=== PATIENT | female | born 1995 | race Caucasian/White ===

== ENCOUNTER → 2018-05-17 | Outpatient (CLI) | payer MEDICAID ==
--- NOTE | 2018-05-20 13:41 | HM ---
HOLTER MONITOR REPORT Patient was monitored 24 hours. The baseline rhythm is a sinus mechanism with normal conduction. The average rate 94 beats per minute, minimum 63, maximum 132 beats per minute. Supraventricular ectopic activity was present in the form of rare single PACs. Ventricular ectopic activity was not present. Symptoms of dizziness, fast rate, anxiety, shortness of breath did not correlate with any dysrhythmia. CONCLUSION: 1. Sinus mechanism baseline rhythm. 2. Rare supraventricular ectopic activity. 3. No ventricular ectopic activity. 4. Symptoms did not correlate with any dysrhythmia. MMODL / IJN: [id number] /
== END | disposition home or self-care (01) ==
LOC: RADECHMAIN 12:52
PROVIDERS: ATTEND Physician Assistant
DX: I49.3 Ventricular premature depolarization (principal)
CPT/HCPCS: 93225; 93226

== ENCOUNTER → 2018-06-01 | Outpatient (CLI) | payer MEDICAID ==
--- NOTE | 2018-06-01 13:07 | US ---
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 HTN and increased heart ra te for 1 month. TECHNIQUE: Multiple sonographic images of the abdomen are obtained. FINDINGS: EXAM MEASUREMENTS: Liver Length: 12.4 cm Gallbladder Wall: 0.2 cm CBD: 0.4 cm Spleen: 8.0 cm Right Kidney: 9.5 x 4.3 x 4.4 cm Left Kidney: 10.4 x 5.0 x 4.3 cm Grounds Keeper notes:Technical limitations due to large amount of overlying bowel content Pancreas: Only a small portion of the pancreatic neck is seen. Remainder is suboptimally visualized due to shadowing from bowel gas. Liver: Limited intercostal views show no gross abnormality. Gallbladder: no evidence of stones Evidence for sonographic Carroll's sign: no CBD: limited evaluation Spleen: wnl Right Kidney: no evidence of hydronephrosis. Left Kidney: no evidence of hydronephrosis. Upper IVC: wnl Abd Aorta: wnl Scanned within adrenal area bilaterally, unable to visualize at this time IMPRESSION: 1. Some technical and patient limitations as above. 2. The adrenal glands could not be discretely visualized. Note that ultrasound has low utility for as sessment of the adrenal glands.
== END ==
LOC: RADUSWWP 10:15
PROVIDERS: ATTEND Family Medicine
DX: D35.00 Benign neoplasm of unspecified adrenal gland (principal)
CPT/HCPCS: 76700

== ENCOUNTER → 2018-06-06 | Outpatient (CLI) | payer MEDICAID ==
--- NOTE | 2018-06-07 10:25 | ECHOF ---
Referral Reason:I10 Hypertension MEASUREMENTS -------- HEIGHT: 154.9 cm WEIGHT: 95.3 kg BP: RVIDd: 2.4 cm (< 3.3) IVSd: 0.8 cm (0.6 - 1.1) LVIDd: 3.5 cm (3.9 - 5.3) LVPWd: 1.0 cm (0.6 - 1.1) IVSs: 1.2 cm LVIDs: 2.4 cm LVPWs: 1.2 cm LAESV Index (A-L): 22.83 ml/m Ao Diam: 2.9 cm (2.0 - 3.7) AV Cusp: 1.7 cm (1.5 - 2.6) LA Diam: 3.2 cm (2.7 - 3.8) EPSS: 0.3 cm MV E Tyson: 0.76 m/s MV DecT: 303 ms MV A Tyson: 0.71 m/s MV E/A Ratio: 1.07 RAP: 5.00 mmHg RVSP: 27.76 mmHg MV EF SLOPE: 103.46 mm/s (70 - 150) MV EXCURSION: 1.54 cm (> 18.000) FINDINGS -------- Sinus rhythm. This was a technically good study. The left ventricular size is normal. Left ventricular wall thickness is normal. Overall left vent ricular systolic function is normal with, an EF between 55 - 60 %. The right ventricle is normal in size and function. Normal LA size by volume 22+/-6 ml/m2. The right atrium is normal in size. The aortic valve is trileaflet, and appears structurally normal. No aortic stenosis or regurgitation. The mitral valve is normal. There is trace mitral regurgitation. Trace tricuspid regurgitation present. Right ventricular systolic pressure is normal at < 35 mmHg. There is no evidence of pulmonary hypertension. Trace/mild (physiologic) pulmonic regurgitation. The aortic root size is normal. Normal inferior vena cava with normal inspiratory collapse consistent with estimated right atrial pre ssure of 5 mmHg. There is no pericardial effusion. CONCLUSIONS -------- 1. Sinus rhythm. 2. This was a technically good study. 3. The left ventricular size is normal. 4. Left ventricular wall thickness is normal. 5. Overall left ventricular systolic function is normal with, an EF between 55 - 60 %. 6. Normal LA size by volume 22+/-6 ml/m2. 7. The aortic valve is trileaflet, and appears structurally normal. No aortic stenosis or regurgitati on. 8. There is trace mitral regurgitation. 9. Trace tricuspid regurgitation present. 10. Right ventricular systolic pressure is normal at < 35 mmHg. 11. There is no evidence of pulmonary hypertension. 12. Trace/mild (physiologic) pulmonic regurgitation. 13. The aortic root size is normal. 14. There is no pericardial effusion. PROCESS MAINTENANCE TECHNICIAN: Milton Roman RDCS
== END | disposition home or self-care (01) ==
LOC: RADECHMAIN 13:51
PROVIDERS: ATTEND Family Medicine
DX: I08.1 Rheumatic disorders of both mitral and tricuspid valves (principal); I10 Essential (primary) hypertension
CPT/HCPCS: 93306

== ENCOUNTER → 2018-06-30 | Outpatient (CLI) | payer MEDICAID ==
--- NOTE | 2018-06-30 11:31 | US ---
EXAMINATION TYPE: US thyroid st tissue head/neck DATE OF EXAM: 06/30/2018 COMPARISON: NONE CLINICAL HISTORY: E04.[address] exam enlarged thyroid GLAND SIZE: Right Lobe: 5.2 x 1.5 x 1.4 cm Overall Parenchyma: slightly heterogeneous Left Lobe: 4.8 x1.5 x 1.5 cm Overall Parenchyma: slightly heterogeneous Isthmus Thickness: 0.3 cm NODULES RIGHT: # of nodules measured on right: 1 1. 0.7 X 0.6 x 0.4 cm echogenic solid nodule at the mid pole with well-defined margins; . This nod ule is wider than tall and shows no intranodular vascularity. Prior size: no prior LEFT: # of nodules measured on left: 1 1. 0.3 X 0.2 x 0.5 cm echogenic mixed nodule at the medial pole with well-defined margins; . This nodule is wider than tall and shows no intranodular vascularity. Prior size: no prior ISTHMUS: # of nodules measured in the isthmus: 0 Bilateral neck scanned, no evidence of lymphadenopathy. Thyroid gland is normal in size and slightly heterogeneous in appearance with single subcentimeter no dules marked by technologist in both thyroid lobes. IMPRESSION: Normal-sized thyroid without suspicious greater than 1 cm solid or cystic nodule identified.
== END | disposition home or self-care (01) ==
LOC: RADUSWWP 10:11
PROVIDERS: ATTEND Otolaryngology
DX: E04.1 Nontoxic single thyroid nodule (principal)
CPT/HCPCS: 76536

== ENCOUNTER → 2018-07-12 | Outpatient (CLI) | payer MEDICAID ==
[2018-07-12 10:06] LABS: Anion Gap 9 mmol/L; Carbon Dioxide 26 mmol/L (22-30); Chloride 104 mmol/L (98-107); Glucose 91 mg/dL (74-99); Sodium 139 mmol/L (137-145)
[2018-07-12 11:17] LABS: T4, Free (Free Thyroxine) 0.89 ng/dL (0.78-2.19)
[2018-07-12 16:20] LABS: DHEA Sulfate 342.1 ug/dL (26.0-430.0)
[2018-07-12 16:28] LABS: Thyroid Peroxidase Antibodies 61.4 U/mL (0.0-60.0)
[2018-07-12 20:33] LABS: Hemoglobin A1C 5.3 % (4.0-6.0)
== END | disposition home or self-care (01) ==
LOC: RADXRMAIN 09:06
PROVIDERS: ATTEND Internal Medicine Endocrinology, Diabetes & Metabolism
DX: I10 Essential (primary) hypertension (principal); E24.8 Other Cushing's syndrome; E06.3 Autoimmune thyroiditis
CPT/HCPCS: 36415; 80051; 82024; 82533; 82565; 82627; 82947; 83001; 83002; 83036; 83498; 83525; 84403; 84439; 84443; 86376; 86800

== ENCOUNTER → 2018-09-08 | Outpatient (CLI) | payer MEDICAID ==
--- NOTE | 2018-09-09 10:42 | US ---
EXAMINATION TYPE: US pelvic complete DATE OF EXAM: 09/08/2018 COMPARISON: NONE CLINICAL HISTORY: N91.2 Amenorrhea, unspecified. Large body habitus, pt refused TV TECHNIQUE: Transabdominal (TA). Transabdominal sonographic images of the pelvis were acquired. Date of LMP: 05/20/2018 EXAM MEASUREMENTS: Uterus: 7.2 x 2.2 x 3.2 cm Endometrial Stripe: 0.3 cm Right Ovary: 3.1 x 2.8 x 2.7 cm Left Ovary: 2.1 x 1.5 x 2.0 cm 1. Uterus: Anteverted wnl 2. Endometrium: wnl 3. Right Ovary: small follicles, largest measures 1.6 x 1.7 x 1.5 cm 4. Left Ovary: small follicles, largest measures 0.5 x 0.7 x 0.8 cm 5. Bilateral Adnexa: wnl 6. Posterior cul-de-sac: wnl IMPRESSION: Although there are multiple small follicles there is suboptimally visualized given patien t body habitus and refusal for transvaginal imaging. Peripheral location that is typical in polycysti c ovarian syndrome cannot be demonstrated sonographically. No abnormal endometrial thickness.
== END | disposition home or self-care (01) ==
LOC: RADUSWWP 07:04
PROVIDERS: ATTEND Family Medicine
DX: N91.2 Amenorrhea, unspecified (principal)
CPT/HCPCS: 76856

== ENCOUNTER 2018-11-12 09:09 | Observation (INO) | payer MEDICAID ==
[2018-11-12] MEDS ORDERED: SODIUM CHLORIDE 0.9% 1,000 ML IV STA (09:31)
[2018-11-12] MEDS ORDERED: KETOROLAC 30 MG/ML 1 ML VIAL IVP STA (09:31)
--- NOTE | 2018-11-12 09:35 | ED ---
General Adult HPI <DmitryEfe - Last Filed: 11/12/18 12:38> - General Source: patient, RN notes reviewed Mode of arrival: ambulatory Limitations: no limitations <Finn Wong - Last Filed: 11/12/18 12:48> - General Chief complaint: Abdominal Pain Stated complaint: Abd pain Time Seen by Provider: 11/12/18 09:16 - History of Present Illness Initial comments: 23-year-old female presents for chief complaint of mild abdominal pain and nausea times one day. Patient states this started yesterday. She states it feels a sharp cramping pain in the middle of her abdomen. Patient denies any pelvic pain. Patient states she last had a normal bowel movement yesterday. She denies any dysuria. She denies any concern for STDs. Patient denies any chance of . Patient states she has had mild nausea but has denied vomiting. She has been eating and drinking at home. No fevers or chills. Patient has no other complaints at this time including shortness of breath, chest pain, vomiting, headache, or visual changes. (Finn Wong) - Related Data Home Medications Medication Instructions Recorded Confirmed Calcium Carbonate [Tums] 500 mg PO TID PRN 11/12/18 11/12/18 Docusate [Colace] 100 mg PO DAILY PRN 11/12/18 11/12/18 Norethindrone-E.estradiol-Iron 1 tab PO DAILY 11/12/18 11/12/18 [Loestrin Fe 1-20 Tablet] Allergies Allergy/AdvReac Type Severity Reaction Status Date / Time No Known Allergies Allergy Verified 11/12/18 12:43 Review of Systems ROS Other: All systems not noted in ROS Statement are negative. <Efe Andres - Last Filed: 11/12/18 12:38> ROS Other: All systems not noted in ROS Statement are negative. <Finn Wong - Last Filed: 11/12/18 12:48> ROS Statement: Those systems with pertinent positive or pertinent negative responses have been documented in the HPI. Past Medical History Past Medical History: No Reported History History of Any Multi-Drug Resistant Organisms: None Reported Past Surgical History: No Surgical Hx Reported Past Psychological History: No Psychological Hx Reported Smoking Status: Never smoker Past Alcohol Use History: Occasional Past Drug Use History: None Reported <Finn Wong Evelyne - Last Filed: 11/12/18 12:48> General Exam Limitations: no limitations General appearance: alert, in no apparent distress Head exam: Present: atraumatic, normocephalic, normal inspection Eye exam: Present: normal appearance, PERRL, EOMI. Absent: scleral icterus, conjunctival injection, periorbital swelling ENT exam: Present: normal exam, mucous membranes moist Neck exam: Present: normal inspection, full ROM. Absent: tenderness, meningismus, lymphadenopathy Respiratory exam: Present: normal lung sounds bilaterally. Absent: respiratory distress, wheezes, rales, rhonchi, stridor Cardiovascular Exam: Present: regular rate, normal rhythm, normal heart sounds. Absent: systolic murmur, diastolic murmur, rubs, gallop, clicks GI/Abdominal exam: Present: soft, tenderness (mild mid abdominal tenderness with very minimal LLQ and RLQ tenderness without rebound or guarding. no RUQ or LUQ tenderness or epigastric tenderness), normal bowel sounds. Absent: distended, guarding, rebound, rigid Neurological exam: Present: alert, oriented X3, CN II-XII intact Psychiatric exam: Present: normal affect, normal mood <MarvinFinn tejeda Evelyne - Last Filed: 11/12/18 12:48> Course <Efe Andres - Last Filed: 11/12/18 12:38> <Finn Wong Evelyne - Last Filed: 11/12/18 12:48> Vital Signs 11/12/18 11/12/18 11/12/18 09:11 10:41 12:33 Temperature 98.3 F 98.6 F 98.2 F Pulse Rate 104 H 96 116 H Respiratory 18 18 18 Rate Blood Pressure 150/81 131/91 126/81 O2 Sat by Pulse 100 99 99 Oximetry - Reevaluation(s) Reevaluation #1: 11/12/18 12:38 PA supervision: I proceeded [id number] evaluation patient did discuss the findings with the patient and her family. Patient does have abdominal pain. Umbilical in nature which started last night. Her last meal was last night. She does have some mild tenderness palpation of the periumbilical and right lower quadrant area no definitive McBurney point tenderness. She does demonstrate an elevated white blood cell count CAT scan does show evidence of acute appendicitis. I did discuss the case with Dr. Carson patient will be going to surgery. I do agree with the assessment and plan. I did review all labs and imaging. (Efe Andres) Medical Decision Making - Lab Data Result diagrams: 11/12/18 09:46 11/12/18 09:46 <Efe Andres - Last Filed: 11/12/18 12:38> - Lab Data Result diagrams: 11/12/18 09:46 11/12/18 09:46 <Finn Wong - Last Filed: 11/12/18 12:48> - Medical Decision Making 23-year-old female presents with right lower quadrant pain. White count of 14.6. HCG negative. Patient is acute appendicitis on CT. Patient started on Unasyn. Will be admitted to [facility] for surgical consult. Patient going to OR at this time. (iFnn Wnog) - Lab Data Lab Results 11/12/18 11/12/18 11/12/18 Range/Units 09:25 09:25 09:46 WBC (3.8-10.6) k/uL RBC (3.80-5.40) m/uL Hgb (11.4-16.0) gm/dL Hct (34.0-46.0) % MCV (80.0-100.0) fL MCH (25.0-35.0) pg MCHC (31.0-37.0) g/dL RDW (11.5-15.5) % Plt Count (150-450) k/uL Neutrophils % % Lymphocytes % % Monocytes % % Eosinophils % % Basophils % % Neutrophils # (1.3-7.7) k/uL Lymphocytes # (1.0-4.8) k/uL Monocytes # (0-1.0) k/uL Eosinophils # (0-0.7) k/uL Basophils # (0-0.2) k/uL Sodium 135 L (137-145) mmol/L Potassium 4.1 (3.5-5.1) mmol/L Chloride 100 (98-107) mmol/L Carbon Dioxide 23 (22-30) mmol/L Anion Gap 12 mmol/L BUN 12 (7-17) mg/dL Creatinine 0.59 (0.52-1.04) mg/dL Est GFR (CKD-EPI)AfAm >90 (>60 ml/min/1.73 sqM) Est GFR (CKD-EPI)NonAf >90 (>60 ml/min/1.73 sqM) Glucose 150 H (74-99) mg/dL Calcium 10.5 H (8.4-10.2) mg/dL Total Bilirubin 0.8 (0.2-1.3) mg/dL AST 30 (14-36) U/L ALT 38 (9-52) U/L Alkaline Phosphatase 76 (38-126) U/L Total Protein 8.2 (6.3-8.2) g/dL Albumin 4.9 (3.5-5.0) g/dL Amylase 44 (30-110) U/L Lipase 88 (23-300) U/L Urine Color Yellow Urine Appearance Clear (Clear) Urine pH 6.0 (5.0-8.0) Ur Specific [place] 1.017 (1.001-1.035) Urine Protein Negative (Negative) Urine Glucose (UA) Negative (Negative) Urine Ketones 1+ H (Negative) Urine Blood Negative (Negative) Urine Nitrite Negative (Negative) Urine Bilirubin Negative (Negative) Urine Urobilinogen <2.0 (<2.0) mg/dL Ur Leukocyte Esterase Negative (Negative) Urine HCG, Qual Not Detected (Not Detectd) 11/12/18 Range/Units 09:46 WBC 14.6 H (3.8-10.6) k/uL RBC 4.94 (3.80-5.40) m/uL Hgb 14.6 (11.4-16.0) gm/dL Hct 42.6 (34.0-46.0) % MCV 86.3 (80.0-100.0) fL MCH 29.5 (25.0-35.0) pg MCHC 34.1 (31.0-37.0) g/dL RDW 13.2 (11.5-15.5) % Plt Count 302 (150-450) k/uL Neutrophils % 86 % Lymphocytes % 9 % Monocytes % 4 % Eosinophils % 1 % Basophils % 0 % Neutrophils # 12.6 H (1.3-7.7) k/uL Lymphocytes # 1.3 (1.0-4.8) k/uL Monocytes # 0.5 (0-1.0) k/uL Eosinophils # 0.1 (0-0.7) k/uL Basophils # 0.1 (0-0.2) k/uL Sodium (137-145) mmol/L Potassium (3.5-5.1) mmol/L Chloride (98-107) mmol/L Carbon Dioxide (22-30) mmol/L Anion Gap mmol/L BUN (7-17) mg/dL Creatinine (0.52-1.04) mg/dL Est GFR (CKD-EPI)AfAm (>60 ml/min/1.73 sqM) Est GFR (CKD-EPI)NonAf (>60 ml/min/1.73 sqM) Glucose (74-99) mg/dL Calcium (8.4-10.2) mg/dL Total Bilirubin (0.2-1.3) mg/dL AST (14-36) U/L ALT (9-52) U/L Alkaline Phosphatase (38-126) U/L Total Protein (6.3-8.2) g/dL Albumin (3.5-5.0) g/dL Amylase (30-110) U/L Lipase (23-300) U/L Urine Color Urine Appearance (Clear) Urine pH (5.0-8.0) Ur Specific [place] (1.001-1.035) Urine Protein (Negative) Urine Glucose (UA) (Negative) Urine Ketones (Negative) Urine Blood (Negative) Urine Nitrite (Negative) Urine Bilirubin (Negative) Urine Urobilinogen (<2.0) mg/dL Ur Leukocyte Esterase (Negative) Urine HCG, Qual (Not Detectd) Disposition <Efe Andres - Last Filed: 11/12/18 12:38> Time of Disposition: 12:47 <Finn Wong - Last Filed: 11/12/18 12:48> Clinical Impression: Appendicitis Disposition: ADMITTED IP TO THIS HOSP Condition: Fair Referrals: Mehdi Bean MD [Primary Care Provider] - 1-2 days
[2018-11-12 09:50] LABS: Appearance,Urine Clear (Clear); Bilirubin,Urine Negative (Negative); Blood,Urine Negative (Negative); Color,Urine Yellow; Glucose,Urine (UA) Negative (Negative); Ketones,Urine 1+ (Negative); Leukocyte Esterase,Urine Negative (Negative); Nitrite,Urine Negative (Negative); Protein,Urine Negative (Negative); Specific Gravity,Urine 1.017 (1.001-1.035); Urobilinogen,Urine <2.0 mg/dL (<2.0)
[2018-11-12] MEDS: ONDANSETRON 4 MG/2 ML VIAL IVP STA ×2 (09:52→15:22)
[2018-11-12 10:04] LABS: ALT 38 U/L (9-52); AST 30 U/L (14-36); Albumin 4.9 g/dL (3.5-5.0); Alkaline Phosphatase 76 U/L (38-126); Amylase 44 U/L (30-110); Anion Gap 12 mmol/L; Blood Urea Nitrogen 12 mg/dL (7-17); Calcium 10.5 mg/dL (8.4-10.2); Carbon Dioxide 23 mmol/L (22-30); Chloride 100 mmol/L (98-107); Glucose 150 mg/dL (74-99); Lipase 88 U/L (23-300); Potassium 4.1 mmol/L (3.5-5.1); Sodium 135 mmol/L (137-145); Total Bilirubin 0.8 mg/dL (0.2-1.3); Total Protein 8.2 g/dL (6.3-8.2)
[2018-11-12 10:10] LABS: Basophils # (A) 0.1 k/uL (0-0.2); Basophils % (A) 0 %; Eosinophils # (A) 0.1 k/uL (0-0.7); Eosinophils % (A) 1 %; HCT 42.6 % (34.0-46.0); HGB 14.6 gm/dL (11.4-16.0); Lymphocytes # (A) 1.3 k/uL (1.0-4.8); Lymphocytes % (A) 9 %; MCH 29.5 pg (25.0-35.0); MCHC 34.1 g/dL (31.0-37.0); MCV 86.3 fL (80.0-100.0); Mean Platelet Volume 6.6; Monocytes # (A) 0.5 k/uL (0-1.0); Monocytes % (A) 4 %; Neutrophils # (A) 12.6 k/uL (1.3-7.7); Neutrophils % (A) 86 %; Platelet Count 302 k/uL (150-450); RBC 4.94 m/uL (3.80-5.40); RDW 13.2 % (11.5-15.5); WBC 14.6 k/uL (3.8-10.6)
--- NOTE | 2018-11-12 10:18 | XR ---
EXAMINATION TYPE: XR abdomen 2V DATE OF EXAM: 11/12/2018 COMPARISON: NONE HISTORY: Pain TECHNIQUE: One view abdominal series FINDINGS: The osseous structures are intact. The bowel gas pattern is nonspecific. Lung bases are clear. IMPRESSION: 1. Nonspecific abdomen.
--- NOTE | 2018-11-12 12:10 | CT ---
EXAMINATION TYPE: CT abdomen pelvis w con DATE OF EXAM: 11/12/2018 HISTORY: Right lower quadrant pain CT DLP: 1083.6mGycm Automated Exposure Control for Dose Reduction was Utilized. CONTRAST: CT scan of the abdomen and pelvis is performed , patient injected 1 cc Omnipaque 300 COMPARISON: X-ray 11/12/2018 FINDINGS: LUNG BASES: No significant abnormality is appreciated. LIVER/GB: No significant abnormality is appreciated. PANCREAS: No significant abnormality is seen. SPLEEN: No significant abnormality is seen. ADRENALS: No significant abnormality is seen. KIDNEYS: No significant abnormality is seen. BOWEL: There is inflammatory change within the right lower quadrant with a thickened appendiceal wall and periappendiceal fluid and inflammatory change. Appendicolith suggested. Trace amount of fluid is seen within the pelvis on the right. LYMPH NODES: No greater than 1cm abdominal or pelvic lymph nodes are appreciated. OSSEOUS STRUCTURES: No significant abnormality is seen. OTHER: Soft tissue nodules in the adnexal regions likely represent normal ovaries. Aorta of normal ca liber. Small fat-containing periumbilical hernia. IMPRESSION: 1. Acute appendicitis.
[2018-11-12] MEDS ORDERED: AMPICILLIN-SULBACTAM 3 GM in SODIUM CHLORIDE 0.9% 100 ML IVPB STA (12:26)
[2018-11-12] MEDS ORDERED: NALOXONE 0.4 MG/ML 1 ML VIAL IV PRN ×2 (12:37→14:26)
--- NOTE | 2018-11-12 13:04 | P.GSHP ---
History of Present Illness H&P Date: 11/12/18 Chief Complaint: Acute appendicitis Patient comes ER today with complaints of right lower quadrant pain. Patient states she began increasing pain around the bellybutton area for p.m. last night. Some nausea but no vomiting. Decreased appetite. Pain shifted overnight to the right lower quadrant. She works at [employer]. She thought she probably had appendicitis. A CAT scan was performed which confirmed acute appendicitis. HCG negative. WBC 14. - Review of Systems Comment: The patient denies any acute changes in vision or hearing, no dysphagia or odynophagia, no chest pain or shortness of breath, no dysuria or hematuria, no headache, no runny nose, no rectal bleeding or melena, no unexplained weight loss Past Medical History Past Medical History: No Reported History History of Any Multi-Drug Resistant Organisms: None Reported Past Surgical History: No Surgical Hx Reported Past Psychological History: No Psychological Hx Reported Smoking Status: Never smoker Past Alcohol Use History: Occasional Past Drug Use History: None Reported Medications and Allergies Home Medications Medication Instructions Recorded Confirmed Type Calcium Carbonate [Tums] 500 mg PO TID PRN 11/12/18 11/12/18 History Docusate [Colace] 100 mg PO DAILY PRN 11/12/18 11/12/18 History Hydrocodone/Acetaminophen [[place] 1 tab PO Q6HR PRN 3 Days #10 tab 11/12/18 Rx 5-325] Norethindrone-E.estradiol-Iron 1 tab PO DAILY 11/12/18 11/12/18 History [Loestrin Fe 1-20 Tablet] Allergies Allergy/AdvReac Type Severity Reaction Status Date / Time No Known Allergies Allergy Verified 11/12/18 12:43 Surgical - Exam Vital Signs Temp Pulse Resp BP Pulse Ox 98.3 F 104 H 18 150/81 100 11/12/18 09:11 11/12/18 09:11 11/12/18 09:11 11/12/18 09:11 11/12/18 09:11 Physical exam: General: Well-developed, well-nourished HEENT: Normocephalic, sclerae nonicteric Abdomen: Right lower quadrant tenderness, nondistended Extremities: No edema Neuro: Alert and oriented Results - Labs 11/12/18 09:46 11/12/18 09:46 Abnormal Lab Results - Last 24 Hours (Table) 11/12/18 11/12/18 11/12/18 Range/Units 09:25 09:46 09:46 WBC 14.6 H (3.8-10.6) k/uL Neutrophils # 12.6 H (1.3-7.7) k/uL Sodium 135 L (137-145) mmol/L Glucose 150 H (74-99) mg/dL Calcium 10.5 H (8.4-10.2) mg/dL Urine Ketones 1+ H (Negative) Diabetes panel 11/12/18 Range/Units 09:46 Sodium 135 L (137-145) mmol/L Potassium 4.1 (3.5-5.1) mmol/L Chloride 100 (98-107) mmol/L Carbon Dioxide 23 (22-30) mmol/L BUN 12 (7-17) mg/dL Creatinine 0.59 (0.52-1.04) mg/dL Glucose 150 H (74-99) mg/dL Calcium 10.5 H (8.4-10.2) mg/dL AST 30 (14-36) U/L ALT 38 (9-52) U/L Alkaline Phosphatase 76 (38-126) U/L Total Protein 8.2 (6.3-8.2) g/dL Albumin 4.9 (3.5-5.0) g/dL Calcium panel 11/12/18 Range/Units 09:46 Calcium 10.5 H (8.4-10.2) mg/dL Albumin 4.9 (3.5-5.0) g/dL Pituitary panel 11/12/18 Range/Units 09:46 Sodium 135 L (137-145) mmol/L Potassium 4.1 (3.5-5.1) mmol/L Chloride 100 (98-107) mmol/L Carbon Dioxide 23 (22-30) mmol/L BUN 12 (7-17) mg/dL Creatinine 0.59 (0.52-1.04) mg/dL Glucose 150 H (74-99) mg/dL Calcium 10.5 H (8.4-10.2) mg/dL Adrenal panel 11/12/18 Range/Units 09:46 Sodium 135 L (137-145) mmol/L Potassium 4.1 (3.5-5.1) mmol/L Chloride 100 (98-107) mmol/L Carbon Dioxide 23 (22-30) mmol/L BUN 12 (7-17) mg/dL Creatinine 0.59 (0.52-1.04) mg/dL Glucose 150 H (74-99) mg/dL Calcium 10.5 H (8.4-10.2) mg/dL Total Bilirubin 0.8 (0.2-1.3) mg/dL AST 30 (14-36) U/L ALT 38 (9-52) U/L Alkaline Phosphatase 76 (38-126) U/L Total Protein 8.2 (6.3-8.2) g/dL Albumin 4.9 (3.5-5.0) g/dL Assessment and Plan (1) Appendicitis Narrative/Plan: Clinical scenario discussed in detail with the patient and her family. We'll proceed with laparoscopic, possible open appendectomy at this time. Risks of bleeding, infection, abscess, staple line dehiscence, conversion to an open procedure, bladder bowel and ureteral injury reviewed. They understand and wish to proceed. Current Visit: Yes Status: Acute Code(s): K37 - UNSPECIFIED APPENDICITIS SNOMED Code(s): 52546612
[2018-11-12] MEDS ORDERED: BUPIVACAINE (PF) 0.25% 30 ML VIAL SQ ONE ×2 (13:20→14:00)
[2018-11-12] MEDS ORDERED: GLYCOPYRROLATE 0.2 MG/ML 2 ML VIAL ONE (13:35)
[2018-11-12] MEDS ORDERED: NEOSTIGMINE 1 MG/ML 10 ML VIAL ONE (13:35)
[2018-11-12] MEDS ORDERED: PROPOFOL 10 MG/ML 20 ML VIAL IV ONE (13:35)
[2018-11-12] MEDS ORDERED: LIDOCAINE 1% INJ 10MG/ML (20 ML MDV) ONE (13:35)
[2018-11-12] MEDS ORDERED: fentaNYL (PF) 50 MCG/ML 2 ML AMP ONE (13:35)
[2018-11-12] MEDS ORDERED: ROCURONIUM BROMIDE 10 MG/ML 10 ML VIAL IV ONE (13:35)
[2018-11-12] MEDS ORDERED: IV FLUID CONTINUATION 900 ML IV ONE ×2 (13:57)
[2018-11-12] MEDS ORDERED: LACTATED RINGERS 1,000 ML IV ONE ×2 (14:01)
[2018-11-12] MEDS ORDERED: HYDROmorphone 0.5 MG/0.5 ML SYRINGE IVP PRN (14:26)
--- NOTE | 2018-11-12 14:28 | P.OP ---
Date of Procedure: 11/12/18 Procedure(s) Performed: PREOPERATIVE DIAGNOSIS: Acute appendicitis POSTOPERATIVE DIAGNOSIS: Same PROCEDURE: Laparoscopic appendectomy SURGEON: Yamileth EBL: Total ANESTHESIA: General COMPLICATIONS: None OPERATIVE PROCEDURE: The patient was brought and placed on the operating table in the supine position. The patient was placed under general anesthesia. The abdomen was prepped and draped in the usual sterile fashion. A small vertical infraumbilical incision was made. The fascia was retracted anteriorly with Ana forceps. The Veress needle was advanced into the perineal cavity. The saline drop test was normal. Insufflation took place to 15 mmHg. A 5 mm trocar was then placed. An additional 5 mm suprapubic trocar was placed under direct visualization as well as a 12 mm left lower quadrant trocar under direct visualization. The appendix was inspected. It was acutely inflamed. The mesoappendix was dissected. The base of the appendix was divided using a linear 45 mm intestinal stapler. The mesentery itself was divided using the santana load stapler. A small amount of bleeding along the staple line was controlled using the 12 mm clipper. The area was then irrigated. No further purulence or bleeding was seen. The appendix was brought out of the peritoneal cavity through the left lower quadrant trocar site using an Endo Catch bag. The fascia at the 12 mm site was closed using a [id number] 0 Vicryl stitch. The skin at all 3 sites was closed using 4-0 Monocryl sutures. Skin glue was then applied. DISPOSITION: Stable to recovery room
[2018-11-12] MEDS ORDERED: HYDROmorphone 1 MG/ML 1 ML SYRINGE IVP ONE (15:10)
[2018-11-12] MEDS: HEPARIN SODIUM,PORCINE 5,000 UNIT/ML 1 ML VIAL SQ SCH ×2 (17:04→23:20)
[2018-11-12] MEDS ORDERED: ONDANSETRON 4 MG/2 ML VIAL IVP PRN (17:34)
[2018-11-12] MEDS: HYDROcodone/APAP 5-325MG 1 EACH TAB PO PRN (17:46)
[2018-11-12] MEDS: SODIUM CHLORIDE 0.9% 1,000 ML IV SCH (21:47)
[2018-11-13 00:09] VITALS: RESP 16
[2018-11-13] MEDS: SODIUM CHLORIDE 0.9% 1,000 ML IV SCH (05:28)
[2018-11-13] MEDS: HYDROcodone/APAP 5-325MG 1 EACH TAB PO PRN (07:44)
[2018-11-13 07:48] VITALS: BP 128/86; PULSE 90; TEMP 98.1
[2018-11-13] MEDS: HEPARIN SODIUM,PORCINE 5,000 UNIT/ML 1 ML VIAL SQ SCH (10:43)
--- NOTE | 2018-11-13 12:19 | P.DS ---
Providers Date of admission: 11/12/18 12:36 Expected date of discharge: 11/13/18 Attending physician: Kayden Carson Primary care physician: Mehdi Bean - Discharge Diagnosis(es) (1) Appendicitis Patient admitted yesterday for acute appendicitis. Patient underwent laparoscopic appendectomy. Patient has done quite well since that time. She is hoping to go home today. She is afebrile. She is tolerating her diet. We' ll discharge today with plans for outpatient follow-up in 1 week. Current Visit: Yes Status: Acute Patient Condition at Discharge: Fair Plan - Discharge Summary New Discharge Prescriptions: New Hydrocodone/Acetaminophen [[place] 5-325] 1 tab PO Q6HR PRN 3 Days #10 tab PRN Reason: Pain No Action Docusate [Colace] 100 mg PO DAILY PRN PRN Reason: Constipation Calcium Carbonate [Tums] 500 mg PO TID PRN PRN Reason: Heartburn Norethindrone-E.estradiol-Iron [Loestrin Fe 1-20 Tablet] 1 tab PO DAILY Discharge Medication List Calcium Carbonate [Tums] 500 mg PO TID PRN 11/12/18 [History] Docusate [Colace] 100 mg PO DAILY PRN 11/12/18 [History] Hydrocodone/Acetaminophen [[place] 5-325] 1 tab PO Q6HR PRN 3 Days #10 tab [Rx] Norethindrone-E.estradiol-Iron [Loestrin Fe 1-20 Tablet] 1 tab PO DAILY [History] Follow up Appointment(s)/Referral(s): Kayden Carson MD [Medical Doctor] - 1 Week Mehdi Bean MD [Primary Care Provider] - 1-2 days Patient Instructions/Handouts: Laparoscopic Appendectomy (DC)
[2018-11-13 14:52] LABS: C. trachomatis,PCR Negative (Neg,Equiv); Chlamydia trachomatis Source Urine
[2018-11-13 14:58] LABS: N. gonorrhoeae,PCR Negative (Neg,Equiv); Neisseria Source Urine
== END 2018-11-13 13:34 | disposition home or self-care (01) ==
LOC: SUPCPDRO 09:09 → EC 09:09 → 6PED 12:36 → INTOOBSV 12:36 → 6PED 12:47 → 4SSUR 14:35
PROVIDERS: ADMIT Surgery; ATTEND Surgery
DX: K35.80 Unspecified acute appendicitis (principal); K38.1 Appendicular concretions; E28.2 Polycystic ovarian syndrome; Z79.3 Long term (current) use of hormonal contraceptives; Z79.899 Other long term (current) drug therapy
CPT/HCPCS: 44970; 96361; 96374; 96375; 99285; 36415; 88304; 80053; 82150; 83690; 85025; 81003; 81025; 87491; 87591; 74019; 74177; G0378 ×2; J1644; J2710; J2405; J2001; J3010; J1885; J1170; J0295; J2704; Q9967

== ENCOUNTER → 2018-12-26 | Outpatient (CLI) | payer MEDICAID ==
[2018-12-26 09:23] VITALS: BMI 36.4
== END ==
LOC: LABWHC1 07:07
PROVIDERS: ATTEND Family Medicine
DX: E66.9 Obesity, unspecified (principal); Z68.37 Body mass index [BMI] 37.0-37.9, adult
CPT/HCPCS: 97802

== ENCOUNTER → 2019-02-17 | Outpatient (CLI) | payer MEDICAID ==
--- NOTE | 2019-02-18 15:46 | US ---
EXAMINATION TYPE: US thyroid st tissue head/neck DATE OF EXAM: 02/17/2019 COMPARISON: Thyroid ultrasound 2018 CLINICAL HISTORY: E04.1 THYROID NODULE. follow up exam GLAND SIZE: Right Lobe: 4.5 x 1.3 x 1.7 cm Overall Parenchyma: homogenous Left Lobe: 4.8 x 1.1 x 1.4 cm Overall Parenchyma: homogeneous Isthmus Thickness: 0.3 cm NODULES RIGHT: # of nodules measured on right: 1 1. 0.7 X 0.7 x 0.8 cm hypoechoic solid nodule at the lower pole with well-defined margins. This no dule is wider than tall and shows no intranodular vascularity. Prior size: 0.7 x 0.6 x 0.4 cm LEFT: # of nodules measured on left: 1 1. 0.6 X 0.4 x 0.5 cm hypoechoic solid nodule at the lower pole with well-defined margins. This no dule is wider than tall and shows no intranodular vascularity. Prior size: 0.3 x 0.2 x 0.5 cm ISTHMUS: # of nodules measured in the isthmus: 0 Bilateral neck scanned, no evidence of lymphadenopathy. Persistent fairly homogeneous normal-sized thyroid with single small solid nodules redemonstrated. No significant interval change. No new nodules are seen. IMPRESSION: Overall stable findings as detailed above.
== END | disposition home or self-care (01) ==
LOC: RADUSWWP 16:44
PROVIDERS: ATTEND Otolaryngology
DX: E04.1 Nontoxic single thyroid nodule (principal)
CPT/HCPCS: 76536

== ENCOUNTER → 2020-05-14 | Outpatient (CLI) | payer MEDICAID ==
--- NOTE | 2020-05-14 11:56 | US ---
EXAMINATION TYPE: US abdomen complete DATE OF EXAM: 05/14/2020 COMPARISON: CT 11/12/18 CLINICAL HISTORY: R10.12 L upper quad pain. EXAM MEASUREMENTS: Liver Length: 12.8 cm Gallbladder Wall: 0.2 cm CBD: 0.3 cm Spleen: 8.8 cm Right Kidney: 11.6 x 5.1 x 5.0 cm Left Kidney: 10.6 x 5.4 x 4.9 cm Pancreas: Obscured by bowel gas Liver: No masses seen. Gallbladder: wnl Evidence for sonographic Carroll's sign: No CBD: wnl Spleen: wnl Right Kidney: No hydronephrosis or masses seen Left Kidney: No hydronephrosis or masses seen Upper IVC: wnl Abd Aorta: wnl The liver is homogenous. The intrahepatic portion of the IVC and proximal abdominal aorta are within normal limits. There is no evidence of cholelithiasis. Common bile duct is unremarkable. The visu alized portions of the pancreas are homogenous. The spleen is unremarkable. Kidneys are symmetric a nd free of hydronephrosis. No renal lesions are seen. IMPRESSION: No distinct abnormality is seen.
== END | disposition home or self-care (01) ==
LOC: RADUSWWP 10:53
PROVIDERS: ATTEND Family Medicine
DX: R10.12 Left upper quadrant pain (principal)
CPT/HCPCS: 76700

== ENCOUNTER → 2020-05-17 | Outpatient (CLI) | payer BC ==
--- NOTE | 2020-05-18 14:21 | CT ---
EXAMINATION TYPE: CT abdomen wo con DATE OF EXAM: 05/17/2020 COMPARISON: 11/12/2018 INDICATION: Constipation, left sided abdominal pain. DLP: 353.4 mGycm, Automated exposure control for dose reduction was used. CONTRAST: 0 mL of Isovue 300. Study performed without Oral Contrast TECHNIQUE: Axial images were obtained from above the diaphragm to the pubic rami in the axial plane a t 5 mm thick sections. Reconstructed images are reviewed on the computer in the coronal plane. FINDINGS: Limited CT sections are obtained the lung bases. The lung bases are clear. CT ABDOMEN: Liver: Normal Spleen: Normal Pancreas: Normal Adrenal glands: The adrenal glands are normal. Gallbladder: Normal Kidneys: No masses are evident. No hydronephrosis is present. No cysts are present. No renal stone s are evident. Aorta: Normal Inferior vena cava: Normal. Surgical clips are at the right lower quadrant. Correlate for prior appendectomy. Loops of bowel cont ain a few scattered diverticuli within the proximal transverse colon and fecal debris through the col on. Study is without oral contrast limiting bowel evaluation. IMPRESSIONS: 1. Mild diverticulosis without acute diverticulitis. 2. Mild fecal retention.
== END | disposition home or self-care (01) ==
LOC: RADCTMAIN 12:32
PROVIDERS: ATTEND Family Medicine
DX: K57.90 Diverticulosis of intestine, part unspecified, without perforation or abscess without bleeding (principal); K56.41 Fecal impaction
CPT/HCPCS: 74150

== ENCOUNTER 2021-08-11 08:43 | Emergency (ER) | payer BC ==
[2021-08-11] MEDS ORDERED: IBUPROFEN 600 MG TAB PO STA (08:58)
[2021-08-11] MEDS ORDERED: ACETAMINOPHEN TAB 500 MG TAB PO STA (08:58)
[2021-08-11] MEDS ORDERED: DEXAMETHASONE SOD PHOSPHATE 10 MG/ML 1 ML VIAL IM STA (09:38)
--- NOTE | 2021-08-11 09:59 | XR ---
EXAMINATION TYPE: XR chest 2V DATE OF EXAM: 08/11/2021 COMPARISON: Chest x-ray January 05, 2011 HISTORY: Shortness of breath, COVID. TECHNIQUE: Frontal and lateral views of the chest are obtained. FINDINGS: There is poor inspiration with bilateral multifocal opacities. The cardiac silhouette siz e is within normal limits. The osseous structures are intact. EKG leads. IMPRESSION: Poor Inspiration with bilateral multifocal opacities consistent with known covid-19 infe ction.
[2021-08-11] MEDS ORDERED: DEXAMETHASONE SOD PHOSPHATE 10 MG/ML 1 ML VIAL IVP STA (10:01)
[2021-08-11] MEDS ORDERED: SODIUM CHLORIDE 0.9% 50 ML IVPB ONE (10:15)
[2021-08-11] MEDS ORDERED: BAMLANIVIMAB (EUA) 700 MG, ETESEVIMAB (EUA) 1,400 MG in SODIUM CHLORIDE 0.9% 50 ML IVPB ONE (10:30)
--- NOTE | 2021-08-11 10:37 | ED ---
General Adult HPI - General Chief complaint: Upper Respiratory Infection Stated complaint: COVID+, SOB Time Seen by Provider: 08/11/21 08:52 Source: patient Mode of arrival: ambulatory Limitations: no limitations - History of Present Illness Initial comments: 26-year-old female presents to the emergency room for a chief complaint of shortness of breath. Patient was diagnosed with rotavirus 7 days ago, symptoms started 9 days ago. Patient felt short of breath at home today which fronted her to come to the emergency room. She is inquiring about antibodies. Patient was not aware she had a fever. Denies chest pain.Patient has no other complaints at this time including chest pain, abdominal pain, nausea or vomiting, headache, or visual changes. - Related Data Previous Rx's Medication Instructions Recorded Dexamethasone [Decadron] 6 mg PO DAILY #6 tablet 08/11/21 Allergies Allergy/AdvReac Type Severity Reaction Status Date / Time No Known Allergies Allergy Verified 08/11/21 08:51 Review of Systems ROS Statement: Those systems with pertinent positive or pertinent negative responses have been documented in the HPI. ROS Other: All systems not noted in ROS Statement are negative. Past Medical History Past Medical History: No Reported History History of Any Multi-Drug Resistant Organisms: None Reported Past Surgical History: No Surgical Hx Reported Past Psychological History: No Psychological Hx Reported Smoking Status: Never smoker Past Alcohol Use History: Occasional Past Drug Use History: None Reported General Exam Limitations: no limitations General appearance: alert, in no apparent distress Head exam: Present: atraumatic Eye exam: Present: normal appearance, PERRL, EOMI. Absent: scleral icterus, conjunctival injection ENT exam: Present: normal exam, mucous membranes moist Neck exam: Present: normal inspection, full ROM. Absent: tenderness Respiratory exam: Present: normal lung sounds bilaterally. Absent: respiratory distress, wheezes Cardiovascular Exam: Present: regular rate, normal rhythm, normal heart sounds GI/Abdominal exam: Present: soft, normal bowel sounds. Absent: distended, tenderness Neurological exam: Present: alert Course Vital Signs 08/11/21 08/11/21 08/11/21 08:52 09:00 09:46 Temperature 102.2 F H 99.8 F H Pulse Rate 111 H Respiratory 18 18 Rate Blood Pressure 113/74 O2 Sat by Pulse 92 L Oximetry 08/11/21 08/11/21 10:00 10:28 Temperature Pulse Rate 98 92 Respiratory 18 Rate Blood Pressure 114/69 O2 Sat by Pulse 96 Oximetry Medical Decision Making - Medical Decision Making Vitals are stable. Patient initially 90-96% on room air. Lungs are clear. Chest x-ray does show covid pneumonia. Chest wrist versus benefits of antibody infusion, patient prefers this be done today. We will also put patient on Deca dron. Patient will follow up with her doctor. If she has worsening shortness of breath she will return to the emergency room. Disposition Clinical Impression: Fever, COVID-19, Pneumonia due to COVID-19 virus Disposition: HOME SELF-CARE Condition: Good Instructions (If sedation given, give patient instructions): Coronavirus Disease 2019 (COVID-19) Additional Instructions: Please take steroid as directed. Take Tylenol for fever. Drink plenty of flui ds. Take vitamin C, D, and zinc. If you have worsening symptoms such as worsening shortness of breath return to the emergency room. Prescriptions: Dexamethasone [Decadron] 6 mg PO DAILY #6 tablet Is patient prescribed a controlled substance at d/c from ED?: No Referrals: Mehdi Bean MD [Primary Care Provider] - 1-2 days Time of Disposition: 10:35
[2021-08-11 11:01] VITALS: TEMP 99.6
[2021-08-11] MEDS ORDERED: SODIUM CHLORIDE 0.9% 500 ML 500 ML in EMPTY BAG 1 BAG IV PRN (11:04)
[2021-08-11 11:35] VITALS: RESP 16
[2021-08-11 12:21] VITALS: BP 153/76; PULSE 93
== END 2021-08-11 12:30 ==
LOC: MERGE 08:43 → EC 08:43 → PROCWHC3 08:43 → EDSTATUS 10:29 → PROCWHC3 12:30
DX: U07.1 COVID-19 (principal); J12.82 Pneumonia due to coronavirus disease 2019
CPT/HCPCS: 99284; 71046; 96360; J1100; J3490; M0243

== ENCOUNTER → 2021-09-10 | Outpatient (CLI) | payer BC ==
--- NOTE | 2021-09-11 08:24 | US ---
EXAMINATION TYPE: US kidneys/renal and bladder DATE OF EXAM: 09/10/2021 COMPARISON: CT 05/17/2020 CLINICAL HISTORY: 26-year-old female M54.59 LOWER BACK PAIN. Left flank pain x few weeks ago TECHNIQUE: Multiple sonographic images of the kidneys and bladder are obtained. FINDINGS: EXAM MEASUREMENTS: Right Kidney: 9.4 x 4.7 x 4.9 cm Left Kidney: 10.3 x 4.8 x 5.5 cm No hydronephrosis on either side. Bladder: distended, anechoic Bilateral Jets seen IMPRESSION: No hydronephrosis. No specific abnormality seen.
== END | disposition home or self-care (01) ==
LOC: RADUSWWP 16:16
PROVIDERS: ATTEND Internal Medicine
DX: N31.9 Neuromuscular dysfunction of bladder, unspecified (principal); M54.50 Low back pain, unspecified
CPT/HCPCS: 76770

== ENCOUNTER → 2021-09-25 | Outpatient (CLI) | payer BC ==
[2021-09-25 14:38] LABS: HCT 41.5 % (37.2-46.3); HGB 13.3 g/dL (12.0-15.0); MCH 28.7 pg (27.0-32.0); MCV 89.4 fL (80.0-97.0); Mean Platelet Volume 9.4 fL (9.5-12.2); Platelet Count 298 X 10*3/uL (140-440); RBC 4.64 X 10*6/uL (4.10-5.20); RDW 13.5 % (11.5-14.5); WBC 5.88 X 10*3/uL (4.50-10.00)
[2021-09-25 17:18] LABS: Thyroid Peroxidase Antibodies 15.5 U/mL (0.0-33.0)
[2021-09-25 17:29] LABS: BUN/Creat Ratio 14.8 Ratio (12.00-20.00); Globulin 2.6 g/dL (1.6-3.3)
[2021-09-25 17:30] LABS: Albumin 4.9 g/dL (3.8-4.9); Albumin/Globulin Ratio 1.91 (1.60-3.17); Anion Gap 13.8 mmol/L (10.00-18.00); Blood Urea Nitrogen 9.8 mg/dL (9.0-27.0); Calcium 9.7 mg/dL (8.7-10.3); Carbon Dioxide 22.1 mmol/L (20.0-27.5); Follicle Stimulating Hormone 3.3 mIU/mL; Non-African American GFR(CKD) 120.8 (60.0-200.0); T4, Free (Free Thyroxine) 1.29 ng/dL (0.800-1.800); Testosterone 30.1 ng/mL (9.01-47.94); Total Bilirubin 0.3 mg/dL (0.30-1.20); Total Protein 7.5 g/dL (6.2-8.2)
[2021-09-25 23:59] LABS: Insulin Level 29.5 mIU/mL (3.0-25.0)
== END | disposition home or self-care (01) ==
LOC: LABWHC1 10:02
PROVIDERS: ATTEND Internal Medicine
DX: Z13.29 Encounter for screening for other suspected endocrine disorder (principal); E55.9 Vitamin D deficiency, unspecified; E28.2 Polycystic ovarian syndrome; N39.0 Urinary tract infection, site not specified; R73.9 Hyperglycemia, unspecified; R00.0 Tachycardia, unspecified
CPT/HCPCS: 36415; 80053; 82306; 82627; 83001; 83002; 83036; 83525; 84270; 84402; 84403; 84439; 84443; 85027; 85379; 86376; 86800

== ENCOUNTER → 2021-11-28 | Outpatient (CLI) | payer BC ==
--- NOTE | 2021-11-28 14:53 | USB ---
Reason for exam: clinical finding. Indicated problem(s): pain in both breasts. Physical Findings: A clinical breast exam by your physician is recommended on an annual basis and results should be correlated with mammographic findings. US Breast BILAT Right complete breast ultrasound includes all four quadrants, the retroareolar region and axilla. Finding demonstrates no cystic or solid lesion seen. Left complete breast ultrasound includes all four quadrants, the retroareolar region and axilla. Finding demonstrates no cystic or solid lesion seen. These results were verbally communicated with the patient and result sheet given to the patient on 11/28/21. ASSESSMENT: Negative, BI-RAD 1 RECOMMENDATION: Routine screening mammogram of both breasts at age 39. Manage patient on a clinical basis.
== END | disposition home or self-care (01) ==
LOC: RADUSWWP 14:17
PROVIDERS: ATTEND Family Medicine
DX: N64.4 Mastodynia (principal)

== ENCOUNTER → 2022-01-09 | Outpatient (CLI) | payer BC ==
--- NOTE | 2022-01-11 11:24 | US ---
EXAMINATION TYPE: US thyroid st tissue head/neck DATE OF EXAM: 01/09/2022 COMPARISON: NONE CLINICAL HISTORY: R22.1 LOCALIZED SWELLING, MASS AND LUMP, NECK. palpable under right mandible, Soft tissue scan of right neck produced a 0.9 x 0.8 x 0.6cm normal appearing lymph node at site of pa lpable. Limited scan was performed at the site of patient's clinical abnormality IMPRESSION: Benign-appearing lymph node
== END | disposition home or self-care (01) ==
LOC: RADUSWWP 16:22
PROVIDERS: ATTEND Otolaryngology
DX: R22.1 Localized swelling, mass and lump, neck (principal)
CPT/HCPCS: 76536

== ENCOUNTER → 2022-02-28 | Outpatient (CLI) | payer BC ==
[2022-02-28 16:10] LABS: Basophils # (A) 0.07 X 10*3/uL (0.00-0.10); Basophils % (A) 0.8 %; Eosinophils # (A) 0.11 X 10*3/uL (0.04-0.35); Eosinophils % (A) 1.3 %; HCT 44.3 % (37.2-46.3); HGB 14.4 g/dL (12.0-15.0); Immature Grans, Automated 0.2 %; Lymphocytes % (A) 33.9 %; MCHC 32.5 g/dL (32.0-37.0); Mean Platelet Volume 9.8 fL (9.5-12.2); Monocytes # (A) 0.82 X 10*3/uL (0.20-1.00); Monocytes % (A) 9.9 %; NRBC Per 100 WBC 0 /100 WBCS (0.0-0.0); Neutrophils # (A) 4.44 X 10*3/uL (1.80-7.70); Neutrophils % (A) 53.9 %; Platelet Count 351 X 10*3/uL (140-440); RBC 5.15 X 10*6/uL (4.10-5.20); RDW 12.9 % (11.5-14.5); WBC 8.26 X 10*3/uL (4.50-10.00)
[2022-02-28 16:40] LABS: % Iron Saturation 15.26 (12.00-45.00); ALT 27 U/L (8-44); AST 22 U/L (13-35); African American GFR (CKD) 137.6 (60.0-200.0); Alkaline Phosphatase 67 U/L (41-126); BUN/Creat Ratio 22.29 Ratio (12.00-20.00); Blood Urea Nitrogen 15.6 mg/dL (9.0-27.0); Calcium 9.9 mg/dL (8.7-10.3); Carbon Dioxide 21.8 mmol/L (20.0-27.5); Chloride 107 mmol/L (96-109); Chol/HDL Ratio 5.03 Ratio; Ferritin 79.1 ng/mL (10.0-291.0); Globulin 2.5 g/dL (1.6-3.3); Glucose 97 mg/dL (70-110); Iron 66 ug/dL (50-170); LDL Cholesterol,Calculated 176.2 mg/dL (0.0-131.0); Non-African American GFR(CKD) 118.7 (60.0-200.0); Potassium 4.3 mmol/L (3.5-5.5); Sodium 141 mmol/L (135-145); Total Iron Binding Capacity 430 ug/dL (228-460); Total Protein 7.5 g/dL (6.2-8.2); VLDL Calculation 19.28 mg/dL (5.00-40.00)
== END | disposition home or self-care (01) ==
LOC: LABWHC1 10:43
PROVIDERS: ATTEND Nurse Practitioner Gerontology
DX: Z00.00 Encounter for general adult medical examination without abnormal findings (principal); E28.2 Polycystic ovarian syndrome; N92.6 Irregular menstruation, unspecified; E04.1 Nontoxic single thyroid nodule; R73.9 Hyperglycemia, unspecified
CPT/HCPCS: 36415; 80053; 80061; 82533; 82607; 82626; 82670; 82728; 83036; 83540; 83550; 84144; 84270; 84439; 84443; 84481; 84482; 85025; 86140

== ENCOUNTER → 2022-06-11 | Outpatient (CLI) | payer BC ==
--- NOTE | 2022-06-11 19:26 | US ---
EXAMINATION TYPE: US transvaginal DATE OF EXAM: 06/11/2022 COMPARISON: CT abdomen pelvis 11/12/2018, pelvic ultrasound 09/08/2018. CLINICAL HISTORY: N92.6 IRREGULAR MENSTRUATION E04.1 Thyroid nodule. PCOS TECHNIQUE: TV. Transvaginal sonographic images Date of LMP: February 2022 EXAM MEASUREMENTS: Uterus: 7.6 x 3.6 x 2.4 cm Endometrial Stripe: 0.4 cm Right Ovary: 2.7 x 2.2 x 2.3 cm Left Ovary: 2.6 x 1.7 x 1.7 cm 1. Uterus: Anteverted wnl 2. Endometrium: wnl 3. Right Ovary: wnl, tiny follicles suggested however evaluation is limited due to only visualizatio n on transabdominal technique. 4. Left Ovary: wnl,tiny follicles suggested however evaluation is limited due to only visualization on transabdominal technique. 5. Bilateral Adnexa: wnl 6. Posterior cul-de-sac: wnl 7. Incidental nabothian cysts. IMPRESSION: No acute pelvic process.
--- NOTE | 2022-06-11 19:49 | US ---
EXAMINATION TYPE: US thyroid st tissue head/neck DATE OF EXAM: 06/11/2022 COMPARISON: Thyroid ultrasound 09/23/2021, thyroidectomy 10/10/2021. CLINICAL HISTORY: N92.6 IRREGULAR MENSTRUATION E04.1 Thyroid nodule. F/u exam GLAND SIZE: Right Lobe: 4.8 x 1.2 x 1.7 cm Overall Parenchyma: homogenous Left Lobe: 5.3 x 1.6 x 2.3 cm Overall Parenchyma: heterogeneous Isthmus Thickness: 0.3 cm NODULES RIGHT: # of nodules measured on right: 0 LEFT: # of nodules measured on left: 2 1. 1.5 X 1.4 x 1.4 cm, mid, mixed cystic and solid, hypoechoic nodule, which is taller than wide, w ith smooth margins, without echogenic foci. TR 4. Prior size: 1.4 x 1.2 x 1.4 cm 2. 0.9 X 0.7 x 0.5 cm, lower, cystic or almost completely cystic, anechoic nodule, which is wider than tall, with smooth margins, without echogenic foci. TR 1. Prior size: 0.8 x 0.7 x 0.4 cm ISTHMUS: # of nodules measured in the isthmus: 0 Bilateral neck scanned, no evidence of lymphadenopathy. IMPRESSION: 1. Stable 1.5 cm TR 4 left thyroid lobe nodule which has been previously biopsied. Correlation with p athology results is recommended. 2. Stable 0.9 cm TR 1 left thyroid lobe cystic nodule.
== END | disposition home or self-care (01) ==
LOC: RADUSWWP 15:45
PROVIDERS: ATTEND Family Medicine
DX: N92.6 Irregular menstruation, unspecified (principal); E04.2 Nontoxic multinodular goiter
CPT/HCPCS: 76536; 76830

== ENCOUNTER → 2023-02-05 | Outpatient (CLI) | payer BC ==
[2023-02-05 15:18] LABS: HCT 43.9 % (37.2-46.3); HGB 14.6 g/dL (12.0-15.0); MCH 28.9 pg (27.0-32.0); MCHC 33.3 g/dL (32.0-37.0); MCV 86.9 fL (80.0-97.0); Mean Platelet Volume 9.7 fL (9.5-12.2); NRBC Per 100 WBC 0 /100 WBCS (0.0-0.0); Platelet Count 353 X 10*3/uL (140-440); RBC 5.05 X 10*6/uL (4.10-5.20); RDW 12.7 % (11.5-14.5); WBC 7.58 X 10*3/uL (4.50-10.00)
[2023-02-05 15:43] LABS: Homocysteine 9.53 umol/L (4.00-14.00)
[2023-02-05 17:08] LABS: Estradiol 51.6 pg/mL; Testosterone 71.5 ng/mL (9.01-47.94)
[2023-02-05 17:29] LABS: T4, Free (Free Thyroxine) 1.32 ng/dL (0.800-1.800)
[2023-02-05 17:32] LABS: African American GFR (CKD) 116.3 (60.0-200.0); Albumin 4.9 g/dL (3.8-4.9); Albumin/Globulin Ratio 1.69 (1.60-3.17); Anion Gap 14.3 mmol/L (10.00-18.00); BUN/Creat Ratio 19.75 Ratio (12.00-20.00); Blood Urea Nitrogen 15.8 mg/dL (9.0-27.0); Calcium 10.3 mg/dL (8.7-10.3); Carbon Dioxide 21.7 mmol/L (20.0-27.5); Globulin 2.9 g/dL (1.6-3.3); Non-African American GFR(CKD) 100.3 (60.0-200.0); Potassium 4.3 mmol/L (3.5-5.5); Total Bilirubin 0.4 mg/dL (0.30-1.20); Total Protein 7.8 g/dL (6.2-8.2)
[2023-02-05 17:33] LABS: Insulin Level 40.6 mIU/mL (3.0-25.0)
[2023-02-05 21:20] LABS: Gliadin AB IgA, Deaminated NEGATIVE (NEGATIVE); Gliadin AB IgA, Unit 0.2 U/mL; Gliadin AB IgG, Deaminated NEGATIVE (NEGATIVE); Gliadin AB IgG, Unit <0.4 U/mL
[2023-02-05 22:15] LABS: Clam IgE <0.10 kU/L; Codfish IgE <0.10 kU/L; Egg White IgE 0.25 kU/L; Peanut IgE <0.10 kU/L; Scallop IgE <0.10 kU/L; Shrimp IgE <0.10 kU/L; Soybean IgE <0.10 kU/L; Walnut IgE (Food) <0.10 kU/L
== END | disposition home or self-care (01) ==
LOC: LABWHC1 07:35
PROVIDERS: ATTEND Family Medicine
DX: E28.2 Polycystic ovarian syndrome (principal); N97.0 Female infertility associated with anovulation; E06.3 Autoimmune thyroiditis
CPT/HCPCS: 36415; 80053; 82533; 82627; 82670; 82785; 83090; 83516; 83525; 84144; 84403; 84439; 84443; 84481; 85027; 86003

== ENCOUNTER → 2023-04-19 | Outpatient (CLI) | payer BC ==
--- NOTE | 2023-04-20 11:31 | US ---
EXAMINATION TYPE: US thyroid st tissue head/neck DATE OF EXAM: 04/19/2023 COMPARISON: Ultrasound 06/11/2022 CLINICAL INDICATION: Female, 28 years old with history of Z86.89 PERSONAL HISTORY OF ENDO, NUTRITIONA L AND M; Hx FNA. GLAND SIZE: Right Lobe: 5.4 x 1.6 x 1.8 cm Overall Parenchyma: heterogenous Left Lobe: 5.8 x 1.9 x 1.7 cm Overall Parenchyma: heterogenous Isthmus Thickness: 0.30 cm NODULES RIGHT: # of nodules measured on right: 0 LEFT: # of nodules measured on left: 3 1. 1.5 X 1.1 x 0.7 cm, mid mid, cystic or almost completely cystic, anechoic nodule, which is wider than tall, with smooth margins, without echogenic foci. Prior size: Appears slightly larger 2. 1.2 X 1.2 x 0.9 cm, lower mid, solid or almost completely solid, hypoechoic TR 4 nodule, which i s wider than tall, with smooth margins, without echogenic foci. Prior size: Appears slightly larger 3. 0.9 X 0.8 x 0.7 cm, mid mid, solid or almost completely solid, hypoechoic TR 4 nodule, which is wider than tall, with smooth margins, without echogenic foci. Prior size: Appears slightly smaller ISTHMUS: # of nodules measured in the isthmus: 0 Bilateral neck scanned, no evidence of lymphadenopathy. IMPRESSION: Mild thyromegaly. 3 clustered nodules on the left. The smaller 2 measuring 1.2 cm and 0.9 cm are jeannie d, TR4 nodules that can be reassessed at follow-up.
== END | disposition home or self-care (01) ==
LOC: RADUSWWP 15:30
PROVIDERS: ATTEND Family Medicine
DX: E04.2 Nontoxic multinodular goiter (principal); Z86.39 Personal history of other endocrine, nutritional and metabolic disease
CPT/HCPCS: 76536

== ENCOUNTER 2023-11-15 18:56 | Emergency (ER) | payer BC ==
[2023-11-15 19:27] VITALS: TEMP 97.9
--- NOTE | 2023-11-15 19:36 | XR ---
EXAMINATION TYPE: XR chest 2V DATE OF EXAM: 11/15/2023 COMPARISON: 08/11/2021 HISTORY: Chest pain TECHNIQUE: Frontal and lateral views of the chest are obtained. FINDINGS: There is no focal air space opacity, pleural effusion, or pneumothorax seen. The cardiac silhouette size is within normal limits. The osseous structures are intact. IMPRESSION: No acute cardiopulmonary process.
--- NOTE | 2023-11-15 20:00 | ED ---
General Adult HPI - General Chief complaint: Chest Pain Stated complaint: Heart palpatations Time Seen by Provider: 11/15/23 19:59 Source: patient, RN notes reviewed Mode of arrival: ambulatory Limitations: no limitations - History of Present Illness Initial comments: 28-year-old female presents to the emergency department for evaluation of elevated heart rate. She states that this started around 1 or 2:00 today. She notes that she feels like her heart is racing. She denies any chest pain, shortness of breath. Admits to nausea and diarrhea. Patient does state that she is on Ozempic for weight loss. Her dose got doubled to 0.5 mg with her fir st dose of this being yesterday. She states she is unsure if this is related to what she is experiencing. She denies recent fever, chills. - Related Data Home Medications Medication Instructions Recorded Confirmed Magnesium Oxide [Magox 400] 400 mg PO DAILY 11/15/23 11/15/23 Prebiotic-Probiotic 1 cap PO DAILY 11/15/23 11/15/23 Semaglutide [Ozempic] 0.5 mg SQ DIRECTED 11/15/23 11/15/23 Allergies Allergy/AdvReac Type Severity Reaction Status Date / Time amoxicillin AdvReac Vomiting Verified 11/15/23 22:39 Review of Systems ROS Statement: Those systems with pertinent positive or pertinent negative responses have been documented in the HPI. ROS Other: All systems not noted in ROS Statement are negative. Past Medical History Past Medical History: No Reported History Additional Past Medical History / Comment(s): PCOS, covid jul 2021 received antibiodies History of Any Multi-Drug Resistant Organisms: None Reported Past Surgical History: Appendectomy Past Anesthesia/Blood Transfusion Reactions: No Reported Reaction Past Psychological History: Anxiety Smoking Status: Never smoker Past Alcohol Use History: Occasional Past Drug Use History: None Reported - Past Family History Mother Family Medical History: No Reported History General Exam - General Exam Comments Initial Comments: Visual Physical Exam Vital signs reviewed General: Well-appearing, nontoxic, no acute distress. Head: Normocephalic, atraumatic Eyes: PERRLA, EOMI ENT: Airway patent Chest: Nonlabored breathing Skin: No visual rash, normal skin tone Neuro: Alert and oriented 3 Musculoskeletal: No gross abnormalities Limitations: no limitations General appearance: alert, in no apparent distress Head exam: Present: atraumatic, normocephalic, normal inspection Eye exam: Present: normal appearance, PERRL, EOMI. Absent: scleral icterus, conjunctival injection, periorbital swelling ENT exam: Present: normal exam, mucous membranes moist Neck exam: Present: normal inspection. Absent: tenderness, meningismus, lymphadenopathy Respiratory exam: Present: normal lung sounds bilaterally. Absent: respiratory distress, wheezes, rales, rhonchi, stridor Cardiovascular Exam: Present: normal rhythm, tachycardia, normal heart sounds GI/Abdominal exam: Present: soft, normal bowel sounds. Absent: distended, tenderness, guarding, rebound, rigid Extremities exam: Present: normal inspection, full ROM, normal capillary refill. Absent: tenderness, pedal edema, joint swelling, calf tenderness Back exam: Present: normal inspection Neurological exam: Present: alert, oriented X3 Psychiatric exam: Present: normal affect, normal mood Skin exam: Present: warm, dry, intact, normal color. Absent: rash Course Vital Signs 11/15/23 11/15/23 11/15/23 19:02 20:22 21:00 Temperature 97.9 F Pulse Rate 143 H 133 H 133 H Respiratory 20 18 17 Rate Blood Pressure 133/81 150/105 134/94 O2 Sat by Pulse 95 95 96 Oximetry 11/15/23 11/15/23 22:54 23:31 Temperature Pulse Rate 112 H 110 H Respiratory 16 17 Rate Blood Pressure 140/97 O2 Sat by Pulse 98 96 Oximetry Medical Decision Making - Medical Decision Making Quick note preformed and electronically signed by ROCCO BreenC Was pt. sent in by a medical professional or institution ([facility], [facility], urgent care, hospital, or [facility]...) When possible be specific @ -No Did you speak to anyone other than the patient for history (EMS, parent, family, police, friend...)? What history was obtained from this source @ -No Did you review nursing and triage notes (agree or disagree)? Why? @ -I reviewed and agree with nursing and triage notes Were old charts reviewed (outside hosp., previous admission, EMS record, old EKG, old radiological studies, urgent care reports/EKG's, [facility] records)? Report findings @ -No old charts were reviewed Differential Diagnosis (chest pain, altered mental status, abdominal pain women, abdominal pain men, vaginal bleeding, weakness, fever, dyspnea, syncope, headache, dizziness, GI bleed, back pain, seizure, CVA, palpatations, mental health, musculoskeletal)? @ -Differential Palpitations Ventricular arrhythmias, atrial arrhythmias, myocardial infarction, anemia, thyrotoxicosis, electrolyte imbalance, hypokalemia, pulmonary embolism, pulmonary disease, drugs, alcohol, anxiety, stress.... This is not meant to be an all-inclusive list. EKG interpreted by me (3pts min.). @ -EKG at 1910 shows sinus tachycardia rate 146, ME 138, QRS 82 Repeat EKG at 2230 shows sinus tachycardia rate 119, no significant ST, T wave changes X-rays interpreted by me (1pt min.). @ -Chest x-ray shows no acute process CT interpreted by me (1pt min.). @ -None done U/S interpreted by me (1pt. min.). @ -None done What testing was considered but not performed or refused? (CT, X-rays, U/S, labs)? Why? @ -None What meds were considered but not given or refused? Why? @ -None Did you discuss the management of the patient with other professionals (professionals i.e. , PA, [facility], lab, RT, psych nurse, oncology social worker, land acquisition manager, teacher, infantry officer, case reviewer)? Give summary @ -No Was smoking cessation discussed for >3mins.? @ -No Was critical care preformed (if so, how long)? @ -No Were there social determinants of health that impacted care today? How? (Homelessness, low income, unemployed, alcoholism, drug addiction, transportation, low edu. Level, literacy, decrease access to med. care, intermediate, rehab)? @ -No Was there de-escalation of care discussed even if they declined (Discuss DNR or withdrawal of care, Hospice)? DNR status @ -No What co-morbidities impacted this encounter? (DM, HTN, Smoking, COPD, CAD, Canc er, CVA, ARF, Chemo, Hep., AIDS, mental health diagnosis, sleep apnea, morbid obesity)? @ -None Was patient admitted / discharged? Hospital course, mention meds given and route, prescriptions, significant lab abnormalities, going to OR and other pertinent info. @ -Discharge. Patient presented to the emergency department for evaluation of palpitations and elevated heart rate. Chest x-ray obtained which shows no acute process. Laboratory studies obtained.CBC unremarkable; normal coagulation s tudies, D-dimer of 0.3 which is negative; CMP shows mild acidosis with a CO2 of 14 and anion gap of 14, negative troponin, TSH 1.32; UA negative for any signs of infection, negative for ketones; COVID, influenza, RSV negative. Patient was provided a dose of Ativan in the emergency department along with 2 L of normal saline. Heart rate had improved to 110. Discussed that this is possibly related to the increase in Ozempic dose. Discussed discharge home, patient is agreeable with this. Strict return precautions were discussed. Patient stable at time of discharge. Case discussed with Dr. Almonte Undiagnosed new problem with uncertain prognosis? @ -No Drug Therapy requiring intensive monitoring for toxicity (Heparin, Nitro, Insulin, Cardizem)? @ -No Were any procedures done? @ -No Diagnosis/symptom? @ -Sinus tachycardia Acute, or Chronic, or Acute on Chronic? @ -Acute Uncomplicated (without systemic symptoms) or Complicated (systemic symptoms)? @ -Uncomplicated Side effects of treatment? @ -No Exacerbation, Progression, or Severe Exacerbation? @ -No Poses a threat to life or bodily function? How? (Chest pain, [place], [place], pneumonia, PE, COPD, DKA, ARF, appy, cholecystitis, CVA, Diverticulitis, Homicidal, Suicidal, threat to staff... and all critical care pts) @ -No - Lab Data Result diagrams: 11/15/23 19:59 11/15/23 19:59 Lab Results 11/15/23 11/15/23 11/15/23 Range/Units 19:59 19:59 19:59 WBC 9.1 (3.8-10.6) k/uL RBC 5.39 (3.80-5.40) m/uL Hgb 15.5 (11.4-16.0) gm/dL Hct 45.7 (34.0-46.0) % MCV 84.9 (80.0-100.0) fL MCH 28.7 (25.0-35.0) pg MCHC 33.8 (31.0-37.0) g/dL RDW 12.6 (11.5-15.5) % Plt Count 320 (150-450) k/uL MPV 6.7 Neutrophils % 81 % Lymphocytes % 11 % Monocytes % 5 % Eosinophils % 1 % Basophils % 0 % Neutrophils # 7.3 (1.3-7.7) k/uL Lymphocytes # 1.0 (1.0-4.8) k/uL Monocytes # 0.5 (0-1.0) k/uL Eosinophils # 0.1 (0-0.7) k/uL Basophils # 0.0 (0-0.2) k/uL PT 10.4 (10.0-12.5) sec INR 0.9 (<1.2) APTT 24.6 (22.0-30.0) sec D-Dimer (<0.60) mg/L FEU Sodium 139 (137-145) mmol/L Potassium 4.9 (3.5-5.1) mmol/L Chloride 111 H (98-107) mmol/L Carbon Dioxide 14 L (22-30) mmol/L Anion Gap 14 mmol/L BUN 11 (7-17) mg/dL Creatinine 0.61 (0.52-1.04) mg/dL Est GFR (CKD-EPI)AfAm >90 (>60 ml/min/1.73 sqM) Est GFR (CKD-EPI)NonAf >90 (>60 ml/min/1.73 sqM) Glucose 137 H (74-99) mg/dL Calcium 10.0 (8.4-10.2) mg/dL Magnesium 1.9 (1.6-2.3) mg/dL Total Bilirubin 1.2 (0.2-1.3) mg/dL AST 42 H (14-36) U/L ALT 35 H (4-34) U/L Alkaline Phosphatase 91 (38-126) U/L Troponin I (0.000-0.034) ng/mL Total Protein 9.0 H (6.3-8.2) g/dL Albumin 5.5 H (3.5-5.0) g/dL TSH (0.465-4.680) mIU/L Urine Color Urine Appearance (Clear) Urine pH (5.0-8.0) Ur Specific [place] (1.001-1.035) Urine Protein (Negative) Urine Glucose (UA) (Negative) Urine Ketones (Negative) Urine Blood (Negative) Urine Nitrite (Negative) Urine Bilirubin (Negative) Urine Urobilinogen (<2.0) mg/dL Ur Leukocyte Esterase (Negative) Urine HCG, Qual (Not Detectd) Influenza Type A (PCR) (Not Detectd) Influenza Type B (PCR) (Not Detectd) RSV (PCR) (Not Detectd) SARS-CoV-2 (PCR) (Not Detectd) 11/15/23 11/15/23 11/15/23 Range/Units 19:59 20:24 20:24 WBC (3.8-10.6) k/uL RBC (3.80-5.40) m/uL Hgb (11.4-16.0) gm/dL Hct (34.0-46.0) % MCV (80.0-100.0) fL MCH (25.0-35.0) pg MCHC (31.0-37.0) g/dL RDW (11.5-15.5) % Plt Count (150-450) k/uL MPV Neutrophils % % Lymphocytes % % Monocytes % % Eosinophils % % Basophils % % Neutrophils # (1.3-7.7) k/uL Lymphocytes # (1.0-4.8) k/uL Monocytes # (0-1.0) k/uL Eosinophils # (0-0.7) k/uL Basophils # (0-0.2) k/uL PT (10.0-12.5) sec INR (<1.2) APTT (22.0-30.0) sec D-Dimer 0.30 (<0.60) mg/L FEU Sodium (137-145) mmol/L Potassium (3.5-5.1) mmol/L Chloride (98-107) mmol/L Carbon Dioxide (22-30) mmol/L Anion Gap mmol/L BUN (7-17) mg/dL Creatinine (0.52-1.04) mg/dL Est GFR (CKD-EPI)AfAm (>60 ml/min/1.73 sqM) Est GFR (CKD-EPI)NonAf (>60 ml/min/1.73 sqM) Glucose (74-99) mg/dL Calcium (8.4-10.2) mg/dL Magnesium (1.6-2.3) mg/dL Total Bilirubin (0.2-1.3) mg/dL AST (14-36) U/L ALT (4-34) U/L Alkaline Phosphatase (38-126) U/L Troponin I <0.012 (0.000-0.034) ng/mL Total Protein (6.3-8.2) g/dL Albumin (3.5-5.0) g/dL TSH 1.320 (0.465-4.680) mIU/L Urine Color Urine Appearance (Clear) Urine pH (5.0-8.0) Ur Specific [place] (1.001-1.035) Urine Protein (Negative) Urine Glucose (UA) (Negative) Urine Ketones (Negative) Urine Blood (Negative) Urine Nitrite (Negative) Urine Bilirubin (Negative) Urine Urobilinogen (<2.0) mg/dL Ur Leukocyte Esterase (Negative) Urine HCG, Qual (Not Detectd) Influenza Type A (PCR) (Not Detectd) Influenza Type B (PCR) (Not Detectd) RSV (PCR) (Not Detectd) SARS-CoV-2 (PCR) (Not Detectd) 11/15/23 11/15/23 11/15/23 Range/Units 20:24 20:24 20:24 WBC (3.8-10.6) k/uL RBC (3.80-5.40) m/uL Hgb (11.4-16.0) gm/dL Hct (34.0-46.0) % MCV (80.0-100.0) fL MCH (25.0-35.0) pg MCHC (31.0-37.0) g/dL RDW (11.5-15.5) % Plt Count (150-450) k/uL MPV Neutrophils % % Lymphocytes % % Monocytes % % Eosinophils % % Basophils % % Neutrophils # (1.3-7.7) k/uL Lymphocytes # (1.0-4.8) k/uL Monocytes # (0-1.0) k/uL Eosinophils # (0-0.7) k/uL Basophils # (0-0.2) k/uL PT (10.0-12.5) sec INR (<1.2) APTT (22.0-30.0) sec D-Dimer (<0.60) mg/L FEU Sodium (137-145) mmol/L Potassium (3.5-5.1) mmol/L Chloride (98-107) mmol/L Carbon Dioxide (22-30) mmol/L Anion Gap mmol/L BUN (7-17) mg/dL Creatinine (0.52-1.04) mg/dL Est GFR (CKD-EPI)AfAm (>60 ml/min/1.73 sqM) Est GFR (CKD-EPI)NonAf (>60 ml/min/1.73 sqM) Glucose (74-99) mg/dL Calcium (8.4-10.2) mg/dL Magnesium (1.6-2.3) mg/dL Total Bilirubin (0.2-1.3) mg/dL AST (14-36) U/L ALT (4-34) U/L Alkaline Phosphatase (38-126) U/L Troponin I (0.000-0.034) ng/mL Total Protein (6.3-8.2) g/dL Albumin (3.5-5.0) g/dL TSH (0.465-4.680) mIU/L Urine Color Colorless Urine Appearance Clear (Clear) Urine pH 6.0 (5.0-8.0) Ur Specific [place] 1.003 (1.001-1.035) Urine Protein Negative (Negative) Urine Glucose (UA) Negative (Negative) Urine Ketones Negative (Negative) Urine Blood Negative (Negative) Urine Nitrite Negative (Negative) Urine Bilirubin Negative (Negative) Urine Urobilinogen <2.0 (<2.0) mg/dL Ur Leukocyte Esterase Negative (Negative) Urine HCG, Qual Not Detected (Not Detectd) Influenza Type A (PCR) Not Detected (Not Detectd) Influenza Type B (PCR) Not Detected (Not Detectd) RSV (PCR) Not Detected (Not Detectd) SARS-CoV-2 (PCR) Not Detected (Not Detectd) Disposition Clinical Impression: Sinus tachycardia, Palpitations Disposition: HOME SELF-CARE Condition: Stable Instructions (If sedation given, give patient instructions): Heart Palpitations (ED), Tachycardia (ED) Additional Instructions: Please follow up with your primary care provider. Return to the emergency department for new or worsening symptoms. Is patient prescribed a controlled substance at d/c from ED?: No Referrals: Ramone Calle MD [Primary Care Provider] - 1-2 days
[2023-11-15 20:10] LABS: Basophils % (A) 0 %; Eosinophils # (A) 0.1 k/uL (0-0.7); Eosinophils % (A) 1 %; HCT 45.7 % (34.0-46.0); HGB 15.5 gm/dL (11.4-16.0); Lymphocytes % (A) 11 %; MCH 28.7 pg (25.0-35.0); MCHC 33.8 g/dL (31.0-37.0); MCV 84.9 fL (80.0-100.0); Mean Platelet Volume 6.7; Monocytes # (A) 0.5 k/uL (0-1.0); Monocytes % (A) 5 %; Neutrophils # (A) 7.3 k/uL (1.3-7.7); Neutrophils % (A) 81 %; Platelet Count 320 k/uL (150-450); RBC 5.39 m/uL (3.80-5.40); RDW 12.6 % (11.5-15.5); WBC 9.1 k/uL (3.8-10.6)
[2023-11-15 20:18] LABS: ALT 35 U/L (4-34); AST 42 U/L (14-36); African American GFR (CKD) >90 (>60 ml/min/1.73 sqM); Albumin 5.5 g/dL (3.5-5.0); Alkaline Phosphatase 91 U/L (38-126); Anion Gap 14 mmol/L; Blood Urea Nitrogen 11 mg/dL (7-17); Carbon Dioxide 14 mmol/L (22-30); Chloride 111 mmol/L (98-107); Glucose 137 mg/dL (74-99); Magnesium 1.9 mg/dL (1.6-2.3); Non-African American GFR(CKD) >90 (>60 ml/min/1.73 sqM); Potassium 4.9 mmol/L (3.5-5.1); Sodium 139 mmol/L (137-145); Total Bilirubin 1.2 mg/dL (0.2-1.3)
[2023-11-15 20:25] LABS: INR 0.9 (<1.2); Partial Thromboplastin Time 24.6 sec (22.0-30.0); Prothrombin Time 10.4 sec (10.0-12.5)
[2023-11-15 20:46] LABS: Appearance,Urine Clear (Clear); Bilirubin,Urine Negative (Negative); Blood,Urine Negative (Negative); Color,Urine Colorless; Glucose,Urine (UA) Negative (Negative); Ketones,Urine Negative (Negative); Leukocyte Esterase,Urine Negative (Negative); Nitrite,Urine Negative (Negative); Protein,Urine Negative (Negative); Specific Gravity,Urine 1.003 (1.001-1.035); Urobilinogen,Urine <2.0 mg/dL (<2.0)
[2023-11-15] MEDS: SODIUM CHLORIDE 0.9% 1,000 ML IV ONE ×2 (22:01→22:52)
[2023-11-15] MEDS: LORazepam 1 MG TAB PO STA (22:02)
[2023-11-15 23:43] VITALS: BP 140/97; PULSE 110; RESP 17
== END 2023-11-15 23:31 | disposition home or self-care (01) ==
LOC: EC 18:56
DX: R00.2 Palpitations (principal); R00.0 Tachycardia, unspecified; I25.2 Old myocardial infarction; Z86.59 Personal history of other mental and behavioral disorders; Z86.16 Personal history of COVID-19; Z88.0 Allergy status to penicillin
CPT/HCPCS: 36415; 71046; 80053; 81003; 81025; 83735; 84443; 84484; 85025; 85379; 85610; 85730; 87636; 93005; 96360; 96361; 99285

== ENCOUNTER 2023-11-17 09:11 | Emergency (ER) | payer BC ==
[2023-11-17 09:55] VITALS: RESP 18
--- NOTE | 2023-11-17 10:32 | ED ---
General Adult HPI - General Chief complaint: Nausea/Vomiting/Diarrhea Stated complaint: nvd Time Seen by Provider: 11/17/23 09:21 Source: patient, RN notes reviewed Mode of arrival: ambulatory Limitations: no limitations - History of Present Illness Initial comments: 28-year-old female presents emergency department chief complaint of nausea vomiting diarrhea. She states that symptoms started Wednesday when she was seen here for an elevated heart rate. She states she did increase her Ozempic dose on Wednesday night. Patient states that she is having profuse diarrhea she states it seems to be more fibrous in nature denies any recent antibiotic use she s tates she has upset stomach, abdominal cramping and bloating. Patient reports no fever states she has had hot and cold flashes though. Denies chest pain shortness of breath she was screened for viral infections which was negative. - Related Data Home Medications Medication Instructions Recorded Confirmed Magnesium Oxide [Magox 400] 400 mg PO DAILY 11/15/23 11/15/23 Prebiotic-Probiotic 1 cap PO DAILY 11/15/23 11/15/23 Semaglutide [Ozempic] 0.5 mg SQ DIRECTED 11/15/23 11/15/23 Previous Rx's Medication Instructions Recorded Dicyclomine [Bentyl] 20 mg PO TID #21 tablet 11/17/23 Allergies Allergy/AdvReac Type Severity Reaction Status Date / Time amoxicillin AdvReac Vomiting Verified 11/17/23 09:28 Review of Systems ROS Statement: Those systems with pertinent positive or pertinent negative responses have been documented in the HPI. ROS Other: All systems not noted in ROS Statement are negative. Past Medical History Past Medical History: No Reported History Additional Past Medical History / Comment(s): PCOS, covid jul 2021 received antibiodies History of Any Multi-Drug Resistant Organisms: None Reported Past Surgical History: Appendectomy Past Anesthesia/Blood Transfusion Reactions: No Reported Reaction Past Psychological History: Anxiety Smoking Status: Never smoker Past Alcohol Use History: Occasional Past Drug Use History: None Reported - Past Family History Mother Family Medical History: No Reported History General Exam Limitations: no limitations General appearance: alert, in no apparent distress Head exam: Present: atraumatic, normocephalic, normal inspection Eye exam: Present: normal appearance, PERRL, EOMI. Absent: scleral icterus, conjunctival injection, periorbital swelling ENT exam: Present: normal exam, mucous membranes moist Neck exam: Present: normal inspection. Absent: tenderness, meningismus, lymphadenopathy Respiratory exam: Present: normal lung sounds bilaterally. Absent: respiratory distress, wheezes, rales, rhonchi, stridor Cardiovascular Exam: Present: normal rhythm, tachycardia, normal heart sounds. Absent: systolic murmur, diastolic murmur, rubs, gallop, clicks GI/Abdominal exam: Present: soft, tenderness, normal bowel sounds. Absent: distended, guarding, rebound, rigid Neurological exam: Present: alert, oriented X3 Skin exam: Present: warm, dry, intact, normal color. Absent: rash Course Vital Signs 11/17/23 11/17/23 11/17/23 09:24 10:45 11:28 Temperature 98.9 F 97.7 F 98.1 F Pulse Rate 120 H 86 92 Respiratory 18 18 18 Rate Blood Pressure 131/93 114/78 127/86 O2 Sat by Pulse 95 95 98 Oximetry Medical Decision Making - Medical Decision Making Was pt. sent in by a medical professional or institution (Dr. PA, [facility], urgent care, hospital, or custodial...) When possible be specific @ -No Did you speak to anyone other than the patient for history (EMS, parent, family, police, friend...)? What history was obtained from this source @ -No Did you review nursing and triage notes (agree or disagree)? Why? @ -I reviewed and agree with nursing and triage notes Were old charts reviewed (outside hosp., previous admission, EMS record, old EKG, old radiological studies, urgent care reports/EKG's, custodial records)? Report findings @ -[Reviewed recent laboratory studies Differential Diagnosis (chest pain, altered mental status, abdominal pain women, abdominal pain men, vaginal bleeding, weakness, fever, dyspnea, syncope, headache, dizziness, GI bleed, back pain, seizure, CVA, palpatations, mental health, musculoskeletal)? @ -Differential Abdominal Pain Women: Appendicitis, Cholecystitis, diverticulosis, ischemic bowel, pancreatitis, hepatitis, UTI, gastroenteritis, AAA, incarcerated hernia, bowel obstruction, constipation, inflammatory bowel, hepatitis, peptic ulcer disease, splenic infarction, perforated viscus, vulvitis, ovarian torsion, PID, kidney stone, placenta abruption, this is not meant to be an all-inclusive list EKG interpreted by me (3pts min.). @ -None X-rays interpreted by me (1pt min.). @ -[None done CT interpreted by me (1pt min.). @ -None done U/S interpreted by me (1pt. min.). @ -None done What testing was considered but not performed or refused? (CT, X-rays, U/S, labs)? Why? @ -None What meds were considered but not given or refused? Why? @ -None Did you discuss the management of the patient with other professionals (professionals i.e. Dr., PA, [facility], lab, RT, psych nurse, transition social worker, configuration analyst, teacher, digital marketing officer, onsite case manager)? Give summary @ -No Was smoking cessation discussed for >3mins.? @ -No Was critical care preformed (if so, how long)? @ -No Were there social determinants of health that impacted care today? How? (Homelessness, low income, unemployed, alcoholism, drug addiction, transportation, low edu. Level, literacy, decrease access to med. care, longterm, rehab)? @ -No Was there de-escalation of care discussed even if they declined (Discuss DNR or withdrawal of care, Hospice)? DNR status @ -No What co-morbidities impacted this encounter? (DM, HTN, Smoking, COPD, CAD, Cancer, CVA, ARF, Chemo, Hep., AIDS, mental health diagnosis, sleep apnea, morbid obesity)? @ -None Was patient admitted / discharged? Hospital course, mention meds given and route, prescriptions, significant lab abnormalities, going to OR and other pertinent info. @ -Discharge patient feels greatly improved after Lomotil, IV fluids. Patient's symptoms may related to her Ozempic. Patient we discharged in stable condition with symptomatic control Undiagnosed new problem with uncertain prognosis? @ -No Drug Therapy requiring intensive monitoring for toxicity (Heparin, Nitro, Insulin, Cardizem)? @ -No Were any procedures done? @ -No Diagnosis/symptom? @ -Diarrhea, dehydration, medication reaction Acute, or Chronic, or Acute on Chronic? @ -Acute Uncomplicated (without systemic symptoms) or Complicated (systemic symptoms)? @ -Uncomplicated Side effects of treatment? @ -No Exacerbation, Progression, or Severe Exacerbation? @ -No Poses a threat to life or bodily function? How? (Chest pain, [place], [place], pneumonia, PE, COPD, DKA, ARF, appy, cholecystitis, CVA, Diverticulitis, Homicidal, Suicidal, threat to staff... and all critical care pts) @ -No - Lab Data Result diagrams: 11/17/23 10:32 11/17/23 10:32 Lab Results 11/17/23 11/17/23 11/17/23 Range/Units 10:32 10:32 10:32 WBC 6.8 (3.8-10.6) k/uL RBC 5.21 (3.80-5.40) m/uL Hgb 15.0 (11.4-16.0) gm/dL Hct 44.9 (34.0-46.0) % MCV 86.2 (80.0-100.0) fL MCH 28.8 (25.0-35.0) pg MCHC 33.4 (31.0-37.0) g/dL RDW 12.5 (11.5-15.5) % Plt Count 291 (150-450) k/uL MPV 6.8 Neutrophils % 64 % Lymphocytes % 23 % Monocytes % 9 % Eosinophils % 1 % Basophils % 1 % Neutrophils # 4.3 (1.3-7.7) k/uL Lymphocytes # 1.5 (1.0-4.8) k/uL Monocytes # 0.6 (0-1.0) k/uL Eosinophils # 0.1 (0-0.7) k/uL Basophils # 0.0 (0-0.2) k/uL Sodium 141 (137-145) mmol/L Potassium 4.4 (3.5-5.1) mmol/L Chloride 109 H (98-107) mmol/L Carbon Dioxide 21 L (22-30) mmol/L Anion Gap 11 mmol/L BUN 11 (7-17) mg/dL Creatinine 0.71 (0.52-1.04) mg/dL Est GFR (CKD-EPI)AfAm >90 (>60 ml/min/1.73 sqM) Est GFR (CKD-EPI)NonAf >90 (>60 ml/min/1.73 sqM) Glucose 112 H (74-99) mg/dL Plasma Lactic Acid Marco (0.7-2.0) mmol/L Calcium 10.2 (8.4-10.2) mg/dL Total Bilirubin 0.6 (0.2-1.3) mg/dL AST 41 H (14-36) U/L ALT 43 H (4-34) U/L Alkaline Phosphatase 64 (38-126) U/L Total Protein 7.8 (6.3-8.2) g/dL Albumin 4.8 (3.5-5.0) g/dL Amylase 49 (30-110) U/L Lipase 126 (23-300) U/L TSH 1.070 (0.465-4.680) mIU/L Urine Color Colorless Urine Appearance Clear (Clear) Urine pH 6.0 (5.0-8.0) Ur Specific [place] 1.012 (1.001-1.035) Urine Protein Negative (Negative) Urine Glucose (UA) Negative (Negative) Urine Ketones Negative (Negative) Urine Blood Negative (Negative) Urine Nitrite Negative (Negative) Urine Bilirubin Negative (Negative) Urine Urobilinogen <2.0 (<2.0) mg/dL Ur Leukocyte Esterase Negative (Negative) Urine HCG, Qual (Not Detectd) 11/17/23 11/17/23 Range/Units 10:32 10:32 WBC (3.8-10.6) k/uL RBC (3.80-5.40) m/uL Hgb (11.4-16.0) gm/dL Hct (34.0-46.0) % MCV (80.0-100.0) fL MCH (25.0-35.0) pg MCHC (31.0-37.0) g/dL RDW (11.5-15.5) % Plt Count (150-450) k/uL MPV Neutrophils % % Lymphocytes % % Monocytes % % Eosinophils % % Basophils % % Neutrophils # (1.3-7.7) k/uL Lymphocytes # (1.0-4.8) k/uL Monocytes # (0-1.0) k/uL Eosinophils # (0-0.7) k/uL Basophils # (0-0.2) k/uL Sodium (137-145) mmol/L Potassium (3.5-5.1) mmol/L Chloride (98-107) mmol/L Carbon Dioxide (22-30) mmol/L Anion Gap mmol/L BUN (7-17) mg/dL Creatinine (0.52-1.04) mg/dL Est GFR (CKD-EPI)AfAm (>60 ml/min/1.73 sqM) Est GFR (CKD-EPI)NonAf (>60 ml/min/1.73 sqM) Glucose (74-99) mg/dL Plasma Lactic Acid Marco 1.1 (0.7-2.0) mmol/L Calcium (8.4-10.2) mg/dL Total Bilirubin (0.2-1.3) mg/dL AST (14-36) U/L ALT (4-34) U/L Alkaline Phosphatase (38-126) U/L Total Protein (6.3-8.2) g/dL Albumin (3.5-5.0) g/dL Amylase (30-110) U/L Lipase (23-300) U/L TSH (0.465-4.680) mIU/L Urine Color Urine Appearance (Clear) Urine pH (5.0-8.0) Ur Specific [place] (1.001-1.035) Urine Protein (Negative) Urine Glucose (UA) (Negative) Urine Ketones (Negative) Urine Blood (Negative) Urine Nitrite (Negative) Urine Bilirubin (Negative) Urine Urobilinogen (<2.0) mg/dL Ur Leukocyte Esterase (Negative) Urine HCG, Qual Not Detected (Not Detectd) Disposition Clinical Impression: Dehydration, Diarrhea, Medication reaction Disposition: HOME SELF-CARE Condition: Stable Instructions (If sedation given, give patient instructions): Acute Nausea and Vomiting (ED), Acute Diarrhea (ED) Additional Instructions: Please return to the Emergency Department if symptoms worsen or any other concerns. Prescriptions: Dicyclomine [Bentyl] 20 mg PO TID #21 tablet Is patient prescribed a controlled substance at d/c from ED?: No Referrals: Ramone Calle MD [Primary Care Provider] - 1-2 days Time of Disposition: 11:51
[2023-11-17] MEDS: SODIUM CHLORIDE 0.9% 2,000 ML IV STA (10:40)
[2023-11-17] MEDS: ONDANSETRON 4 MG/2 ML VIAL IVP STA (10:42)
[2023-11-17] MEDS: DICYCLOMINE 20 MG TAB PO STA (10:43)
[2023-11-17] MEDS: DIPHENOX-ATROP 2.5-0.025 MG 1 EACH TAB PO STA (10:43)
[2023-11-17 10:51] LABS: Basophils % (A) 1 %; Eosinophils # (A) 0.1 k/uL (0-0.7); Eosinophils % (A) 1 %; HCT 44.9 % (34.0-46.0); Lymphocytes # (A) 1.5 k/uL (1.0-4.8); Lymphocytes % (A) 23 %; MCH 28.8 pg (25.0-35.0); MCHC 33.4 g/dL (31.0-37.0); MCV 86.2 fL (80.0-100.0); Mean Platelet Volume 6.8; Monocytes # (A) 0.6 k/uL (0-1.0); Monocytes % (A) 9 %; Neutrophils # (A) 4.3 k/uL (1.3-7.7); Neutrophils % (A) 64 %; Platelet Count 291 k/uL (150-450); RBC 5.21 m/uL (3.80-5.40); RDW 12.5 % (11.5-15.5); WBC 6.8 k/uL (3.8-10.6)
[2023-11-17 10:52] LABS: Appearance,Urine Clear (Clear); Bilirubin,Urine Negative (Negative); Blood,Urine Negative (Negative); Color,Urine Colorless; Glucose,Urine (UA) Negative (Negative); Ketones,Urine Negative (Negative); Leukocyte Esterase,Urine Negative (Negative); Nitrite,Urine Negative (Negative); Protein,Urine Negative (Negative); Specific Gravity,Urine 1.012 (1.001-1.035); Urobilinogen,Urine <2.0 mg/dL (<2.0)
[2023-11-17 11:11] LABS: ALT 43 U/L (4-34); AST 41 U/L (14-36); African American GFR (CKD) >90 (>60 ml/min/1.73 sqM); Albumin 4.8 g/dL (3.5-5.0); Alkaline Phosphatase 64 U/L (38-126); Amylase 49 U/L (30-110); Anion Gap 11 mmol/L; Blood Urea Nitrogen 11 mg/dL (7-17); Calcium 10.2 mg/dL (8.4-10.2); Carbon Dioxide 21 mmol/L (22-30); Chloride 109 mmol/L (98-107); Glucose 112 mg/dL (74-99); Lipase 126 U/L (23-300); Non-African American GFR(CKD) >90 (>60 ml/min/1.73 sqM); Potassium 4.4 mmol/L (3.5-5.1); Sodium 141 mmol/L (137-145); Total Bilirubin 0.6 mg/dL (0.2-1.3); Total Protein 7.8 g/dL (6.3-8.2)
[2023-11-17 11:36] VITALS: BP 127/86; PULSE 92; TEMP 98.1
[2023-11-17] MEDS: DIPHENOX-ATROP STARTER PACK 8 TAB BTL PO STA (11:59)
== END 2023-11-17 12:03 | disposition home or self-care (01) ==
LOC: EC 09:11
DX: E86.0 Dehydration (principal); T38.3X5A Adverse effect of insulin and oral hypoglycemic [antidiabetic] drugs, initial encounter; R19.7 Diarrhea, unspecified; Z86.59 Personal history of other mental and behavioral disorders; Z88.0 Allergy status to penicillin
CPT/HCPCS: 36415; 80053; 84443; 82150; 83605; 83690; 85025; 81003; 81025; 99284; 96374; 96361; J2405

== ENCOUNTER → 2024-01-20 | Outpatient (CLI) | payer BC ==
[2024-01-20 10:39] LABS: Basophils # (A) 0.06 X 10*3/uL (0.00-0.10); Basophils % (A) 0.6 %; Eosinophils # (A) 0.12 X 10*3/uL (0.04-0.35); Eosinophils % (A) 1.1 %; HCT 44.8 % (37.2-46.3); Lymphocytes # (A) 3.06 X 10*3/uL (0.90-5.00); Lymphocytes % (A) 29.2 %; MCHC 33.5 g/dL (32.0-37.0); MCV 86.7 FL (80.0-97.0); Monocytes # (A) 0.69 X 10*3/uL (0.20-1.00); Monocytes % (A) 6.6 %; NRBC Per 100 WBC 0 X 10*3/uL (0.00-0.01); Neutrophils # (A) 6.53 X 10*3/uL (1.80-7.70); Neutrophils % (A) 62.2 %; Platelet Count 361 X 10*3/uL (140-440); RBC 5.17 X 10*6/uL (4.10-5.20); RDW 12.9 % (11.5-14.5); WBC 10.49 X 10*3/uL (4.50-10.00)
[2024-01-20 11:14] LABS: Thyroid Peroxidase Antibodies 9.8 U/mL (0.0-33.0)
[2024-01-20 11:18] LABS: Progesterone 0.3 ng/mL
[2024-01-20 12:20] LABS: % Iron Saturation 17.14 (12.00-45.00); Estradiol 33.5 pg/mL; Iron 67 UG/DL (50-170); T4, Free (Free Thyroxine) 1.51 ng/dL (0.80-1.80); Total Iron Binding Capacity 391 UG/DL (228-460)
[2024-01-20 12:24] LABS: Insulin Level 59.5 mIU/mL (3.0-25.0)
[2024-01-20 12:40] LABS: ALT 45 U/L (8-44); AST 31 U/L (13-35); Albumin 5.1 g/dL (3.8-4.9); Albumin/Globulin Ratio 1.89 Ratio (1.60-3.17); Alkaline Phosphatase 82 U/L (41-126); BUN/Creat Ratio 22.29 Ratio (12.00-20.00); Blood Urea Nitrogen 15.6 mg/dL (9.0-27.0); Calcium 10.5 mg/dL (8.7-10.3); Carbon Dioxide 18.7 mmol/L (21.6-31.8); Chloride 104 mmol/L (96-109); Chol/HDL Ratio 4.78 Ratio; Globulin 2.7 g/dL (1.6-3.3); Glucose 99 mg/dL (70-110); LDL Cholesterol,Calculated 120.5 mg/dL (0.0-131.0); Potassium 4.4 mmol/L (3.5-5.5); Sodium 141 mmol/L (135-145); Total Bilirubin 0.5 mg/dL (0.3-1.2); Total Protein 7.8 g/dL (6.2-8.2)
[2024-01-20 12:42] LABS: Follicle Stimulating Hormone 7.1 mIU/mL; Luteinizing Hormone 16.8 mIU/mL
== END | disposition home or self-care (01) ==
LOC: LABWHC1 07:04
PROVIDERS: ATTEND Internal Medicine
DX: E55.9 Vitamin D deficiency, unspecified (principal); E28.2 Polycystic ovarian syndrome; R94.6 Abnormal results of thyroid function studies; R53.83 Other fatigue
CPT/HCPCS: 36415; 80053; 80061; 82306; 82533; 82607; 82626; 82670; 82728; 83001; 83002; 83036; 83525; 83540; 83550; 84144; 84146; 84403; 84439; 84443; 84481; 85025; 86376; 86800

== ENCOUNTER 2024-03-14 17:15 | Emergency (ER) | payer BC ==
[2024-03-14 17:22] VITALS: TEMP 98
[2024-03-14 18:59] LABS: Basophils # (A) 0.1 k/uL (0-0.2); Basophils % (A) 1 %; Eosinophils # (A) 0.2 k/uL (0-0.7); Eosinophils % (A) 2 %; HCT 39.9 % (34.0-46.0); HGB 13.1 gm/dL (11.4-16.0); Lymphocytes # (A) 1.6 k/uL (1.0-4.8); Lymphocytes % (A) 12 %; MCH 29.1 pg (25.0-35.0); MCHC 32.7 g/dL (31.0-37.0); MCV 88.8 fL (80.0-100.0); Mean Platelet Volume 7.2; Monocytes # (A) 0.6 k/uL (0-1.0); Monocytes % (A) 5 %; Neutrophils # (A) 11.3 k/uL (1.3-7.7); Neutrophils % (A) 81 %; Platelet Count 356 k/uL (150-450); RBC 4.49 m/uL (3.80-5.40); RDW 12.5 % (11.5-15.5); WBC 13.9 k/uL (3.8-10.6)
[2024-03-14 19:23] LABS: ALT 60 U/L (4-34); AST 30 U/L (14-36); African American GFR (CKD) >90 (>60 ml/min/1.73 sqM); Albumin 4.4 g/dL (3.5-5.0); Alkaline Phosphatase 79 U/L (38-126); Anion Gap 7 mmol/L; Blood Urea Nitrogen 7 mg/dL (7-17); Calcium 9.8 mg/dL (8.4-10.2); Carbon Dioxide 26 mmol/L (22-30); Chloride 107 mmol/L (98-107); Glucose 112 mg/dL (74-99); Magnesium 1.9 mg/dL (1.6-2.3); Non-African American GFR(CKD) >90 (>60 ml/min/1.73 sqM); Potassium 4.1 mmol/L (3.5-5.1); Sodium 140 mmol/L (137-145); Total Bilirubin 0.5 mg/dL (0.2-1.3); Total Protein 7.3 g/dL (6.3-8.2)
[2024-03-14] MEDS: SODIUM CHLORIDE 0.9% 1,000 ML IV STA (19:24)
[2024-03-14 19:25] VITALS: RESP 16
[2024-03-14 19:25] LABS: INR 0.9 (<1.2); Partial Thromboplastin Time 24.3 sec (22.0-30.0); Prothrombin Time 10.2 sec (10.0-12.5)
--- NOTE | 2024-03-14 19:34 | XR ---
EXAMINATION TYPE: XR chest 2V DATE OF EXAM: 03/14/2024 7:09 PM CLINICAL INDICATION:Female, 29 years old with history of Chest Pain; COMPARISON: Chest radiographs from 11/15/2023 TECHNIQUE: XR chest 2V Frontal and lateral views of the chest. FINDINGS: Lungs/Pleura: There is no evidence of pleural effusion, focal consolidation, or pneumothorax. Pulmonary vascularity: Unremarkable. Heart/mediastinum: Cardiomediastinal silhouette is unremarkable. Musculoskeletal: No acute osseous pathology. IMPRESSION: No acute cardiopulmonary disease/process.
--- NOTE | 2024-03-14 20:25 | ED ---
Chest Pain HPI - General Chief Complaint: Chest Pain Stated Complaint: Chest/Back Pain Time Seen by Provider: 03/14/24 20:10 Source: patient, RN notes reviewed Mode of arrival: ambulatory Limitations: no limitations - History of Present Illness Initial Comments: 29-year-old female presented to the ER with a chief complaint of right sided back and chest pain. Patient reports she was recently seen by urgent care and diagnosed with diverticulitis. Patient was started on Flagyl and cefdinir. She states earlier today she started to notice left flank with mild radiation to her chest. She also states she was having some chest discomfort but believed it was from her anxiety. Patient denies any known cardiac history, control use, smoking or history of blood clots. She denies any abdominal pain but does admit to diarrhea. Denies any fevers, chills, shortness of breath or peripheral edema. - Related Data Home Medications Medication Instructions Recorded Confirmed Magnesium Oxide [Magox 400] 400 mg PO DAILY 11/15/23 11/15/23 Prebiotic-Probiotic 1 cap PO DAILY 11/15/23 11/15/23 Semaglutide [Ozempic] 0.5 mg SQ DIRECTED 11/15/23 11/15/23 Previous Rx's Medication Instructions Recorded Dicyclomine [Bentyl] 20 mg PO TID #21 tablet 11/17/23 Allergies Allergy/AdvReac Type Severity Reaction Status Date / Time amoxicillin AdvReac Vomiting Verified 11/17/23 09:28 ciprofloxacin [From Cipro] AdvReac Vomiting Verified 03/14/24 17:22 Review of Systems ROS Statement: Those systems with pertinent positive or pertinent negative responses have been documented in the HPI. ROS Other: All systems not noted in ROS Statement are negative. EKG Findings - EKG Comments: EKG Findings:: EKG taken at 17: 31 showing sinus tachycardia with T wave inversion in V III. Ventricular rate 113, W[place] interval 171, QRS duration 102, QT/QTc 326/393. Past Medical History Past Medical History: No Reported History Additional Past Medical History / Comment(s): PCOS, covid jul 2021 received antibiodies History of Any Multi-Drug Resistant Organisms: None Reported Past Surgical History: Appendectomy Past Anesthesia/Blood Transfusion Reactions: No Reported Reaction Past Psychological History: Anxiety Smoking Status: Never smoker Past Alcohol Use History: Occasional Past Drug Use History: None Reported - Past Family History Mother Family Medical History: No Reported History General Exam Limitations: no limitations General appearance: alert, in no apparent distress Respiratory exam: Present: normal lung sounds bilaterally. Absent: respiratory distress, wheezes, rales, rhonchi, stridor Cardiovascular Exam: Present: normal rhythm, tachycardia, normal heart sounds. Absent: systolic murmur, diastolic murmur, rubs, gallop, clicks GI/Abdominal exam: Present: soft, normal bowel sounds. Absent: distended, tenderness, guarding, rebound, rigid Extremities exam: Present: normal inspection, full ROM, normal capillary refill. Absent: tenderness, pedal edema, joint swelling, calf tenderness Back exam: Present: normal inspection Neurological exam: Present: alert, oriented X3, CN II-XII intact Skin exam: Present: warm, dry, intact, normal color. Absent: rash Course Vital Signs 03/14/24 03/14/24 03/14/24 17:19 17:34 19:24 Temperature 98 F Pulse Rate 124 H 109 H Pulse Rate [ 120 H Sitting] Respiratory 18 16 Rate Blood Pressure 157/79 132/77 O2 Sat by Pulse 100 95 Oximetry 03/14/24 21:43 Temperature Pulse Rate 105 H Pulse Rate [ Sitting] Respiratory 16 Rate Blood Pressure 112/76 O2 Sat by Pulse 95 Oximetry Chest Pain MDM - MDM Was pt. sent in by a medical professional or institution (, [facility], [facility], urgent care, hospital, or care home...) When possible be specific @ -No Did you speak to anyone other than the patient for history (EMS, parent, family, police, friend...)? What history was obtained from this source @ -No Did you review nursing and triage notes (agree or disagree)? Why? @ -I reviewed and agree with nursing and triage notes Were old charts reviewed (outside hosp., previous admission, EMS record, old EKG, old radiological studies, urgent care reports/EKG's, care home records)? Report findings @ -No old charts were reviewed Differential Diagnosis (chest pain, altered mental status, abdominal pain women, abdominal pain men, vaginal bleeding, weakness, fever, dyspnea, syncope, headache, dizziness, GI bleed, back pain, seizure, CVA, palpatations, mental health, musculoskeletal)? @ -Differential Chest Pain: Stable Angina, Unstable Angina, STEMI, NSTEMI Aortic Dissection, Pneumothorax, Musculoskeletal, Esophageal Spasm GERD, Cholecystitis, Pancreatitis, Zoster, this is not meant to be an all-inclusive list. EKG interpreted by me (3pts min.). @ -As above X-rays interpreted by me (1pt min.). @ -Chest x-ray interpreted by me negative for acute cardiopulmonary process. CT interpreted by me (1pt min.). @ -CTA chest rule out PE negative for evidence of pulmonary embolism. There is diverticulitis within the descending colon without evidence of organizing fluid collection or mass. U/S interpreted by me (1pt. min.). @ -None done What testing was considered but not performed or refused? (CT, X-rays, U/S, labs)? Why? @ -None What meds were considered but not given or refused? Why? @ -None Did you discuss the management of the patient with other professionals (professionals i.e. , PA, [facility], lab, RT, psych nurse, web content & social media manager, learning and development coordinator, teacher, electrical engineering drafting officer, nurse case management)? Give summary @ -No Was smoking cessation discussed for >3mins.? @ -No Was critical care preformed (if so, how long)? @ -No Were there social determinants of health that impacted care today? How? (Homelessness, low income, unemployed, alcoholism, drug addiction, transportation, low edu. Level, literacy, decrease access to med. care, senior living, rehab)? @ -No Was there de-escalation of care discussed even if they declined (Discuss DNR or withdrawal of care, Hospice)? DNR status @ -No What co-morbidities impacted this encounter? (DM, HTN, Smoking, COPD, CAD, Cancer, CVA, ARF, Chemo, Hep., AIDS, mental health diagnosis, sleep apnea, morbid obesity)? @ -Currently being treated for diverticulitis Was patient admitted / discharged? Hospital course, mention meds given and route, prescriptions, significant lab abnormalities, going to OR and other pertinent info. @ -Discharge. 29-year-old female presented to the ER with a chief complaint of left-sided flank and chest pain. History and physical exam completed. Vitals upon arrival remarkable for a temperature of 98, heart rate 124, respiratory rate 18, blood pressure 157/79, oxygen saturation 100% on room air. Exam significant for tenderness to palpation of left flank. No CVA tenderness. Lung sounds clear to auscultation bilaterally. Patient in no signs of acute distress and nontoxic-appearing. Laboratory studies obtained remarkable for white blood cell count 13.9 with a left shift but is likely reactive from diverticulitis diagnosis. Troponin less than 0.012. D-dimer obtained due to tachycardia and pleuritic chest pain. D-dimer 0.68, CTA chest performed at that time. CT negative for evidence of pulmonary embolism but does show evidence of diverticulitis of the descending colon without evidence of organizing fluid collection or mass. Urinalysis unremarkable. EKG showing sinus tachycardia with no acute ST segment and T wave inversion in V3. Patient received 1 L IV fluids in the ER. Upon reevaluation, patient resting comfortably in exam room reporting mildly improved symptoms. Discomfort believed to be musculoskeletal in nature or related to diverticulitis. Patient is stable for discharge at this time. I advised her to continue taking Flagyl and cefdinir as prescribed by urgent care. Extremely strict return parameters were discussed. Patient cat brown expressed understanding and agreement with care plan. Patient discharged in stable condition with follow-up to PCP. Case discussed with ED attending, Dr. Bell. Undiagnosed new problem with uncertain prognosis? @ -No Drug Therapy requiring intensive monitoring for toxicity (Heparin, Nitro, Insulin, Cardizem)? @ -No Were any procedures done? @ -No Diagnosis/symptom? @ -Diverticulitis/elevated d dimer Acute, or Chronic, or Acute on Chronic? @ -Acute Uncomplicated (without systemic symptoms) or Complicated (systemic symptoms)? @ -Uncomplicated Side effects of treatment? @ -No Exacerbation, Progression, or Severe Exacerbation? @ -No Poses a threat to life or bodily function? How? (Chest pain, [place], [place], pneumonia, PE, COPD, DKA, ARF, appy, cholecystitis, CVA, Diverticulitis, Homicidal, Suicidal, threat to staff... and all critical care pts) @ -Low likelihood at this time. Disposition Clinical Impression: Diverticulitis, Elevated d-dimer Disposition: HOME SELF-CARE Condition: Stable Instructions (If sedation given, give patient instructions): Diverticulitis (ED) Additional Instructions: Continue taking antibiotics prescribed by urgent care for diverticulitis. Follow-up with PCP. Return to the ER for any new or worsening concerns. Is patient prescribed a controlled substance at d/c from ED?: No Referrals: Ramone Calle MD [Primary Care Provider] - 1-2 days Thelma Sewell MD [STAFF PHYSICIAN] - 1-2 days Time of Disposition: 21:30
[2024-03-14 20:47] LABS: Appearance,Urine Clear (Clear); Bilirubin,Urine Negative (Negative); Blood,Urine Negative (Negative); Color,Urine Colorless; Glucose,Urine (UA) Negative (Negative); Ketones,Urine Negative (Negative); Leukocyte Esterase,Urine Negative (Negative); Nitrite,Urine Negative (Negative); PH, Urine 6.5 (5.0-8.0); Protein,Urine Negative (Negative); Specific Gravity,Urine 1.002 (1.001-1.035); Urobilinogen,Urine <2.0 mg/dL (<2.0)
--- NOTE | 2024-03-14 21:05 | CT ---
EXAMINATION TYPE: CT chest angio for PE CT DLP: 532.7 mGycm, Automated exposure control for dose reduction was used. DATE OF EXAM: 03/14/2024 8:57 PM COMPARISON: Chest radiograph from same day. CLINICAL INDICATION:Female, 29 years old with history of elevated dimer; Elevated D-dimer. TECHNIQUE/CONTRAST: CTA scan of the thorax is performed with IV Contrast, patient injected with 100 mL of Isovue 370, MIP images are created and reviewed these are created on a separate workstation.. FINDINGS: Pulmonary Artery: There is no evidence for a filling defect within the pulmonary vasculature to sugge st acute pulmonary embolism. The pulmonary artery is of normal size. Lungs/Pleura: No evidence of focal consolidation, pleural effusion or pneumothorax. Airway: Large airways are patent. Heart: Heart is within normal limits for size. Vasculature: No evidence of aortic aneurysm. Mediastinum: No gross evidence of adenopathy. Musculoskeletal: No acute osseous abnormalities Soft Tissues/lymph nodes: Unremarkable. Lower neck: No significant findings. Upper Abdomen: Descending colon lateral diverticula with fat stranding changes around it. No organizi ng fluid collection or perforation. Series 411 image 155 IMPRESSION: 1. No evidence of pulmonary embolism. 2. Descending colon diverticulitis without evidence for organizing fluid collection or mass.
[2024-03-14 21:44] VITALS: BP 112/76; PULSE 105
== END 2024-03-14 21:44 | disposition home or self-care (01) ==
LOC: EC 17:15
DX: K57.32 Diverticulitis of large intestine without perforation or abscess without bleeding (principal); R79.1 Abnormal coagulation profile; Z88.0 Allergy status to penicillin; Z88.1 Allergy status to other antibiotic agents; Z86.16 Personal history of COVID-19
CPT/HCPCS: 36415; 93005; 85379; 80053; 83735; 84484; 85025; 85610; 85730; 81003; 81025; 71046; 71275; 99285; 96360; 96361; Q9967

== ENCOUNTER → 2024-03-17 | Outpatient (CLI) | payer BC ==
--- NOTE | 2024-03-22 14:20 | CT ---
EXAMINATION TYPE: CT abdomen pelvis w con DATE OF EXAM: 03/17/2024 COMPARISON: HISTORY: left side upper abd pain, back pain hx of diverticulitis and appy CT DLP: 1671.70 mGycm CONTRAST: CT scan of the abdomen and pelvis is performed with Oral Contrast and with IV Contrast, patient injec steve with 100 mL of Isovue 300. FINDINGS: LUNG BASES-: No visible nodule. No infiltrate. LIVER/GB: No calcified gallstones. No space occupying hepatic lesion. Biliary tree is of normal ca liber. PANCREAS: No inflammation. No distinct mass. SPLEEN: No splenic enlargement. No lesion seen. ADRENALS: No nodule. No thickening. KIDNEYS/BLADDER: No hydronephrosis. No nephrolithiasis. No distinct renal mass. Urinary bladder g rossly unremarkable. BOWEL: Normal appendix. Normal bowel caliber. No inflammation. GENITAL ORGANS: No gross abnormality. LYMPH NODES: No greater than 1cm abdominal or pelvic lymph nodes are appreciated. AORTA: No significant abnormality. OSSEOUS STRUCTURES: No significant abnormality is seen. OTHER: No significant additional abnormality is seen. IMPRESSION: 1. Negative
== END | disposition home or self-care (01) ==
LOC: RADCTMAIN 09:52
PROVIDERS: ATTEND Family Medicine
DX: K57.32 Diverticulitis of large intestine without perforation or abscess without bleeding (principal); N20.0 Calculus of kidney; R11.0 Nausea; K59.01 Slow transit constipation
CPT/HCPCS: 74177; Q9967

== ENCOUNTER 2024-04-12 08:21 | Emergency (ER) | payer BC ==
[2024-04-12 08:24] VITALS: TEMP 98.1
--- NOTE | 2024-04-12 10:29 | ED ---
ENT HPI - General Chief complaint: ENT Stated complaint: ear pain Time Seen by Provider: 04/12/24 08:23 Source: patient, RN notes reviewed Mode of arrival: ambulatory Limitations: no limitations - History of Present Illness Initial comments: 29-year-old female presents emergency department complaint of right ear pain. She has pain behind her ear states it feels swollen very painful no drainage from ear no fevers or chills no headache or dizziness no other complaints. Denies trauma - Related Data Home Medications Medication Instructions Recorded Confirmed Magnesium Oxide [Magox 400] 400 mg PO DAILY 11/15/23 11/15/23 Prebiotic-Probiotic 1 cap PO DAILY 11/15/23 11/15/23 Semaglutide [Ozempic] 0.5 mg SQ DIRECTED 11/15/23 11/15/23 Previous Rx's Medication Instructions Recorded Dicyclomine [Bentyl] 20 mg PO TID #21 tablet 11/17/23 Cephalexin [Keflex] 500 mg PO Q6HR #28 cap 04/12/24 Allergies Allergy/AdvReac Type Severity Reaction Status Date / Time amoxicillin AdvReac Vomiting Verified 11/17/23 09:28 ciprofloxacin [From Cipro] AdvReac Vomiting Verified 03/14/24 17:22 Review of Systems ROS Statement: Those systems with pertinent positive or pertinent negative responses have been documented in the HPI. ROS Other: All systems not noted in ROS Statement are negative. Past Medical History Past Medical History: No Reported History Additional Past Medical History / Comment(s): RED, covid jul 2021 received antibiodies History of Any Multi-Drug Resistant Organisms: None Reported Past Surgical History: Appendectomy Past Anesthesia/Blood Transfusion Reactions: No Reported Reaction Past Psychological History: Anxiety Smoking Status: Never smoker Past Alcohol Use History: Occasional Past Drug Use History: None Reported - Past Family History Mother Family Medical History: No Reported History General Exam Limitations: no limitations General appearance: alert, in no apparent distress Head exam: Present: atraumatic, normocephalic, normal inspection Eye exam: Present: normal appearance, PERRL, EOMI. Absent: scleral icterus, conjunctival injection, periorbital swelling ENT exam: Present: normal oropharynx, mucous membranes moist, TM's normal bilaterally. Absent: normal exam, normal external ear exam (Tenderness right mastoid) Neck exam: Present: normal inspection, full ROM. Absent: tenderness, meningismus, lymphadenopathy Respiratory exam: Present: normal lung sounds bilaterally. Absent: respiratory distress, wheezes, rales, rhonchi, stridor Cardiovascular Exam: Present: regular rate, normal rhythm, normal heart sounds. Absent: systolic murmur, diastolic murmur, rubs, gallop, clicks GI/Abdominal exam: Present: soft, normal bowel sounds. Absent: distended, tenderness, guarding, rebound, rigid Neurological exam: Present: alert, oriented X3, CN II-XII intact, reflexes normal. Absent: motor sensory deficit Course Vital Signs 04/12/24 04/12/24 08:22 11:45 Temperature 98.1 F Pulse Rate 107 H 65 Respiratory 18 16 Rate Blood Pressure 124/80 123/78 O2 Sat by Pulse 97 99 Oximetry Medical Decision Making - Medical Decision Making Was pt. sent in by a medical professional or institution (MONIKA Villalobos, EARLY INTERVENTIONIST, urgent care, hospital, or residential...) When possible be specific @ -No Did you speak to anyone other than the patient for history (EMS, parent, family, police, friend...)? What history was obtained from this source @ -No Did you review nursing and triage notes (agree or disagree)? Why? @ -I reviewed and agree with nursing and triage notes Were old charts reviewed (outside hosp., previous admission, EMS record, old EKG, old radiological studies, urgent care reports/EKG's, residential records)? Report findings @ -No old charts were reviewed Differential Diagnosis (chest pain, altered mental status, abdominal pain women, abdominal pain men, vaginal bleeding, weakness, fever, dyspnea, syncope, headache, dizziness, GI bleed, back pain, seizure, CVA, palpatations, mental health, musculoskeletal)? @ -Otitis media otitis externa, mastoiditis, lymphadenopathy EKG interpreted by me (3pts min.). @ -None X-rays interpreted by me (1pt min.). @ -None done CT interpreted by me (1pt min.). @ -CT mastoid shows no acute process U/S interpreted by me (1pt. min.). @ -None done What testing was considered but not performed or refused? (CT, X-rays, U/S, labs)? Why? @ -None What meds were considered but not given or refused? Why? @ -None Did you discuss the management of the patient with other professionals (professionals i.e. , PA, EARLY INTERVENTIONIST, lab, RT, psych nurse, long term care social worker, thermal spray operator, teacher, supply requirements officer, patient case manager)? Give summary @ -No Was smoking cessation discussed for >3mins.? @ -No Was critical care preformed (if so, how long)? @ -No Were there social determinants of health that impacted care today? How? (Homelessness, low income, unemployed, alcoholism, drug addiction, transportation, low edu. Level, literacy, decrease access to med. care, [facility], rehab)? @ -No Was there de-escalation of care discussed even if they declined (Discuss DNR or withdrawal of care, Hospice)? DNR status @ -No What co-morbidities impacted this encounter? (DM, HTN, Smoking, COPD, CAD, Cancer, CVA, ARF, Chemo, Hep., AIDS, mental health diagnosis, sleep apnea, morbid obesity)? @ -None Was patient admitted / discharged? Hospital course, mention meds given and route, prescriptions, significant lab abnormalities, going to OR and other pertinent info. @ -Discharge CT was unremarkable for mastoiditis. Patient does have some area of skin change concerning for skin infection. Patient will be discharged oral antibiotics return as discussed Undiagnosed new problem with uncertain prognosis? @ -No Drug Therapy requiring intensive monitoring for toxicity (Heparin, Nitro, Insulin, Cardizem)? @ -No Were any procedures done? @ -No Diagnosis/symptom? @ -Otalgia Acute, or Chronic, or Acute on Chronic? @ -Acute Uncomplicated (without systemic symptoms) or Complicated (systemic symptoms)? @ -Uncomplicated Side effects of treatment? @ -No Exacerbation, Progression, or Severe Exacerbation? @ -No Poses a threat to life or bodily function? How? (Chest pain, [place], [place], pneumonia, PE, COPD, DKA, ARF, appy, cholecystitis, CVA, Diverticulitis, Homicidal, Suicidal, threat to staff... and all critical care pts) @ -No Disposition Clinical Impression: Otalgia, Posterior auricular lymphadenopathy Disposition: HOME SELF-CARE Condition: Stable Instructions (If sedation given, give patient instructions): Earache (ED) Additional Instructions: Please return to the Emergency Department if symptoms worsen or any other concerns. Prescriptions: Cephalexin [Keflex] 500 mg PO Q6HR #28 cap Is patient prescribed a controlled substance at d/c from ED?: No Referrals: Ramone Calle MD [Primary Care Provider] - 1-2 days Time of Disposition: 11:28
--- NOTE | 2024-04-12 11:23 | CT ---
EXAMINATION TYPE: CT mastoid wo con DATE OF EXAM: 04/12/2024 COMPARISON: none HISTORY: Pain in right ear x a few days CT DLP: 268.6 mGycm. Automated Exposure Control for Dose Reduction was Utilized. TECHNIQUE: CT scan of internal auditory canal is performed without contrast, thin cut axial images ar e obtained, coronal reformatted images are also reviewed. FINDINGS: The external auditory canals are patent bilaterally. Mastoid air cells show no evidence of abnormal opacification bilaterally. The middle ear ossicles are symmetric and unremarkable. There is no evidence of suspicious surrounding soft tissue density to suggest cholesteatoma. The scutum is preserved bilaterally. The cochlea and the semicircular canals are symmetric and unremarkable. Ves tibular aqueduct and internal carotid canal appear unremarkable. Temporomandibular joints are maintained bilaterally. Visualized paranasal sinuses are grossly clear. Visualized portion brain parenchyma is felt within normal limits. IMPRESSION: No significant abnormality seen to account for patient's symptoms.
[2024-04-12 11:46] VITALS: BP 123/78; PULSE 65; RESP 16
== END 2024-04-12 11:46 | disposition home or self-care (01) ==
LOC: EC 08:21
DX: H92.01 Otalgia, right ear (principal); R59.0 Localized enlarged lymph nodes; Z88.0 Allergy status to penicillin; Z88.1 Allergy status to other antibiotic agents
CPT/HCPCS: 70486; 99283

== ENCOUNTER → 2024-06-03 | Outpatient (CLI) | payer BC ==
[2024-06-04 06:05] LABS: Basophils # (A) 0.07 X 10*3/uL (0.00-0.10); Eosinophils # (A) 0.11 X 10*3/uL (0.04-0.35); Eosinophils % (A) 1.6 %; HCT 43.3 % (37.2-46.3); HGB 14.4 g/dL (12.0-15.0); Lymphocytes # (A) 2.43 X 10*3/uL (0.90-5.00); MCH 29.3 pg (27.0-32.0); MCHC 33.3 g/dL (32.0-37.0); MCV 88.2 FL (80.0-97.0); Mean Platelet Volume 9.6 FL (9.5-12.2); Monocytes # (A) 0.57 X 10*3/uL (0.20-1.00); Monocytes % (A) 8.4 %; NRBC Per 100 WBC 0 X 10*3/uL (0.00-0.01); Neutrophils # (A) 3.56 X 10*3/uL (1.80-7.70); Neutrophils % (A) 52.9 %; Platelet Count 313 X 10*3/uL (140-440); RBC 4.91 X 10*6/uL (4.10-5.20); RDW 13.2 % (11.5-14.5); WBC 6.75 X 10*3/uL (4.50-10.00)
[2024-06-04 06:32] LABS: Insulin Level 29.2 mIU/mL (3.0-25.0)
[2024-06-04 07:33] LABS: Thyroid Peroxidase Antibodies 9.1 U/mL (0.0-33.0)
[2024-06-04 07:57] LABS: ALT 33 U/L (8-44); AST 24 U/L (13-35); Albumin 4.9 g/dL (3.8-4.9); Albumin/Globulin Ratio 1.75 Ratio (1.60-3.17); Alkaline Phosphatase 60 U/L (41-126); BUN/Creat Ratio 22.57 Ratio (12.00-20.00); Blood Urea Nitrogen 15.8 mg/dL (9.0-27.0); Calcium 10.1 mg/dL (8.7-10.3); Carbon Dioxide 20.9 mmol/L (21.6-31.8); Chloride 107 mmol/L (96-109); Chol/HDL Ratio 4.79 Ratio; Globulin 2.8 g/dL (1.6-3.3); Glucose 96 mg/dL (70-110); Iron 62 UG/DL (50-170); Potassium 4.6 mmol/L (3.5-5.5); Sodium 140 mmol/L (135-145); T4, Free (Free Thyroxine) 1.16 ng/dL (0.80-1.80); Total Bilirubin 0.3 mg/dL (0.3-1.2); Total Iron Binding Capacity 400 UG/DL (228-460); Total Protein 7.7 g/dL (6.2-8.2); VLDL Calculation 12.28 mg/dL (5.00-40.00)
[2024-06-04 10:12] LABS: Follicle Stimulating Hormone 2.7 mIU/mL; Luteinizing Hormone 9.3 mIU/mL
== END | disposition home or self-care (01) ==
LOC: LABWHC1 09:42
PROVIDERS: ATTEND Internal Medicine
DX: E28.2 Polycystic ovarian syndrome (principal); E55.9 Vitamin D deficiency, unspecified; E53.8 Deficiency of other specified B group vitamins; R53.83 Other fatigue; R94.6 Abnormal results of thyroid function studies
CPT/HCPCS: 36415; 80053; 80061; 82306; 82533; 82607; 82627; 82670; 82728; 83001; 83002; 83036; 83498; 83525; 83540; 83550; 84146; 84403; 84439; 84443; 84481; 85025; 86376; 86800

== ENCOUNTER 2024-06-21 11:32 | Emergency (ER) | payer BC ==
[2024-06-21 11:35] VITALS: TEMP 97.9
--- NOTE | 2024-06-21 12:09 | ED ---
General Adult HPI - General Source: patient, RN notes reviewed Mode of arrival: ambulatory Limitations: no limitations <Manny Jasso - Last Filed: 06/21/24 12:08> - General Source: patient, RN notes reviewed, old records reviewed <Kenneth Spring - Last Filed: 06/21/24 15:13> - General Chief complaint: Headache Stated complaint: Headache Time Seen by Provider: 06/21/24 11:51 - History of Present Illness Initial comments: Quick note -29-year-old female presents emergency department complaint of right- sided headache x 2 weeks. Patient states she had no trauma no fevers or chills no URI symptoms. She states she tried multiple [id number] medications with no relief. (Manny Jasso) Patient is a 29-year-old female who presents emergency department complaining of headache. Has been ongoing for 2 weeks. States it starts in her right sinus and radiates up into her head and is throbbing. No history of migraines. Presents because this headache is more or less persistent. Denies any weakness or numbness. No head injuries. No fevers, chills, cough. Presents for further evaluation at this time. Originally seen as a quick note. I evaluated the patient when she was placed in hallway bed 10. (Kenneth Spring) - Related Data Home Medications Medication Instructions Recorded Confirmed Magnesium Oxide [Magox 400] 400 mg PO DAILY 11/15/23 06/21/24 Cholecalciferol (Vitamin D3) 50 mcg PO DAILY 06/21/24 06/21/24 [Vitamin D3 (50 Mcg = 2000 Iu)] Cyanocobalamin (Vitamin B-12) 1,000 mcg PO DAILY 06/21/24 06/21/24 [Vitamin B-12] Allergies Allergy/AdvReac Type Severity Reaction Status Date / Time amoxicillin AdvReac Vomiting Verified 06/21/24 14:38 ciprofloxacin [From Cipro] AdvReac Vomiting Verified 06/21/24 14:38 Review of Systems ROS Other: All systems not noted in ROS Statement are negative. <Manny Jasso - Last Filed: 06/21/24 12:08> ROS Other: All systems not noted in ROS Statement are negative. <Kenneth Spring - Last Filed: 06/21/24 15:13> ROS Statement: Those systems with pertinent positive or pertinent negative responses have been documented in the HPI. Review of Systems: CONST: Denies fever EYES: Denies blurry vision ENT: Denies nasal congestion C/V: Denies Chest pain RESP: Denies shortness of breath GI: Denies abdominal pain : Denies dysuria SKIN: Denies rash. MSK: Denies joint pain. NEURO: Endorses headache (Kenneth Spring) Past Medical History Past Medical History: No Reported History Additional Past Medical History / Comment(s): PCOS, covid jul 2021 received antibiodies History of Any Multi-Drug Resistant Organisms: None Reported Past Surgical History: Appendectomy Past Anesthesia/Blood Transfusion Reactions: No Reported Reaction Past Psychological History: Anxiety Smoking Status: Never smoker Past Alcohol Use History: Occasional Past Drug Use History: None Reported - Past Family History Mother Family Medical History: No Reported History <Manny Jasso - Last Filed: 06/21/24 12:08> General Exam Limitations: no limitations <Manny Jasso - Last Filed: 06/21/24 12:08> <Kenneth Spring - Last Filed: 06/21/24 15:13> - General Exam Comments Initial Comments: Visual Physical Exam Vital signs reviewed General: Well-appearing, nontoxic, no acute distress. Head: Normocephalic, atraumatic Eyes: PERRLA, EOMI ENT: Airway patent Chest: Nonlabored breathing Skin: No visual rash, normal skin tone Neuro: Alert and oriented 3 Musculoskeletal: No gross abnormalities (Manny Jasso) General: Appears in no acute distress. HEAD: Normal with no signs of head trauma. EYES: PERRLA, EOMI, conjunctiva normal, no discharge. Pupils 3 mm and equal bilaterally. ENT: [Hearing grossly intact RESPIRATORY: Clear breath sounds bilaterally. No wheezes, rales, or rhonchi. C/V: Regular rate and rhythm. S1 and S2 auscultated, peripheral pulses 2+ and intact throughout ABD: Abd is soft, nontender, nondistended EXT: Normal range of motion, no obvious deformity SKIN: No rashes or lesions observed on exposed skin. NEURO: Alert and oriented x 4. Cranial nerves II-XII intact. No focal sensory or strength deficits. GCS of 15. (Kenneth Spring) Course Vital Signs 06/21/24 11:33 Temperature 97.9 F Pulse Rate 112 H Respiratory 20 Rate Blood Pressure 143/97 O2 Sat by Pulse 96 Oximetry Medical Decision Making <Manny Jasso - Last Filed: 06/21/24 12:08> <Kenneth Spring - Last Filed: 06/21/24 15:13> - Medical Decision Making I completed the quick note portion of this chart signed Manny Jasso PA-C (Manny Jasso) Was pt. sent in by a medical professional or institution (, PA, SAP TRAINER, urgent care, hospital, or correction...) When possible be specific @ -No Did you speak to anyone other than the patient for history (EMS, parent, family, police, friend...)? What history was obtained from this source @ -No Did you review nursing and triage notes (agree or disagree)? Why? @ -I reviewed and agree with nursing and triage notes Were old charts reviewed (outside hosp., previous admission, EMS record, old EKG, old radiological studies, urgent care reports/EKG's, correction records)? Report findings @ -No old charts were reviewed Differential Diagnosis (chest pain, altered mental status, abdominal pain women, abdominal pain men, vaginal bleeding, weakness, fever, dyspnea, syncope, headache, dizziness, GI bleed, back pain, seizure, CVA, palpatations, mental health, musculoskeletal)? @ -Differential Headache: Migraine, tension, cluster, carbon monoxide, central venous thrombosis, pension karma temporal arteritis, acute closure glaucoma, intercranial hemorrhage, mastoiditis, sinusitis, head injury, this is not meant to be an all-inclusive list. EKG interpreted by me (3pts min.). @ -None done X-rays interpreted by me (1pt min.). @ -None done CT interpreted by me (1pt min.). @ -CT brain reveals no obvious acute intracranial process or injury. U/S interpreted by me (1pt. min.). @ -None done What testing was considered but not performed or refused? (CT, X-rays, U/S, labs)? Why? @ -None What meds were considered but not given or refused? Why? @ -None Did you discuss the management of the patient with other professionals (professionals i.e. , PA, SAP TRAINER, lab, RT, psych nurse, social science manager, manager state, teacher, audit officer, pillowcase cleaner)? Give summary @ -No Was smoking cessation discussed for >3mins.? @ -No Was critical care preformed (if so, how long)? @ -No Were there social determinants of health that impacted care today? How? (Homelessness, low income, unemployed, alcoholism, drug addiction, transportation, low edu. Level, literacy, decrease access to med. care, long-term, rehab)? @ -No Was there de-escalation of care discussed even if they declined (Discuss DNR or withdrawal of care, Hospice)? DNR status @ -No What co-morbidities impacted this encounter? (DM, HTN, Smoking, COPD, CAD, Cancer, CVA, ARF, Chemo, Hep., AIDS, mental health diagnosis, sleep apnea, morbid obesity)? @ -None Was patient admitted / discharged? Hospital course, mention meds given and route, prescriptions, significant lab abnormalities, going to OR and other pertinent info. @ -Patient presents for persistent right sided headache for the last 2 weeks. Originally seen in quick note. CT brain obtained and completed and showed no obvious acute intracranial process. When I evaluate the patient, vital signs within acceptable limits. I did offer viral testing which she declined. She did accept a migraine cocktail, minus the Benadryl at her request. Patient will be reevaluated. She was in agreement this plan. We did discuss her CT resu lts. On reevaluation, patient is feeling somewhat improved. Does describe her headache is originating near her upper teeth and was told that she may need her wisdom teeth removed. While sitting here in the ER she did make a dentist appointment. I do believe this is reasonable. On evaluation, patient has no obvious dentition issues. No obvious cavities or periapical abscess. However I believe follow-up with dentistry as well as use of [id number] analgesics should help the patient at home. She was in agreement this plan. Strict return precautions discussed. Patient given a work note. I instructed the patient to follow up with their PCP in the next 1-3 days. . I explained that the patient should return to the emergency department if they experience any worsening symptoms. Strict return precautions were discussed with the patient. The patient expressed understanding of these instructions. I answered all questions that the patient had. The patient was discharged home in good condition with their prescriptions and follow up information. Undiagnosed new problem with uncertain prognosis? @ -No Drug Therapy requiring intensive monitoring for toxicity (Heparin, Nitro, Ins ulin, Cardizem)? @ -No Were any procedures done? @ -No Diagnosis/symptom? @ -Headache Acute, or Chronic, or Acute on Chronic? @ -Acute Uncomplicated (without systemic symptoms) or Complicated (systemic symptoms)? @ -Uncomplicated Side effects of treatment? @ -No Exacerbation, Progression, or Severe Exacerbation? @ -No Poses a threat to life or bodily function? How? (Chest pain, [place], [place], pneumonia, PE, COPD, DKA, ARF, appy, cholecystitis, CVA, Diverticulitis, Homicidal, Suicidal, threat to staff... and all critical care pts) @ -Unlikely (Kenneth Spring) Disposition <Manny Jasso - Last Filed: 06/21/24 12:08> Is patient prescribed a controlled substance at d/c from ED?: No Time of Disposition: 14:48 <Kenneth Spring - Last Filed: 06/21/24 15:13> Clinical Impression: Headache Disposition: HOME SELF-CARE Condition: Good Instructions (If sedation given, give patient instructions): Acute Headache (ED) Referrals: Ramone Calle MD [Primary Care Provider] - 1-2 days
--- NOTE | 2024-06-21 12:51 | CT ---
EXAMINATION TYPE: CT brain wo con CT DLP: 1059.4 mGycm, Automated exposure control for dose reduction was used. DATE OF EXAM: 06/21/2024 12:44 PM COMPARISON: CT mastoid 04/12/2024 CLINICAL INDICATION:Female, 29 years old with history of NG, RIGHT SIDE HEADACHE, TMJ PAIN TECHNIQUE: Brain: Multiple axial CT images of the brain were obtained without IV contrast. . Coronal and sagitta l reformats reviewed. FINDINGS: Brain: Extra-axial spaces: No abnormal extra-axial fluid collections. Ventricular system: Within normal limits Cerebral parenchyma: No acute intraparenchymal hemorrhage or mass effect. The santana-white junction is well differentiated. Cerebellum: Unremarkable. Mass effect: No evidence of midline shift. Intracranial vasculature: unremarkable Soft tissues: Normal. Calvarium/osseous structures: No depressed skull fracture. The visualized portions of the TMJ appear unremarkable. Paranasal sinuses and mastoid air cells: Clear. Hypoplastic appearance of the right frontal sinus. Visualized orbits: Orbital contents are intact. IMPRESSION: No acute intracranial process. [facility], , 06/21/2024 12:49 PM
[2024-06-21] MEDS: ONDANSETRON 4 MG/2 ML VIAL IVP STA (13:37)
[2024-06-21] MEDS: KETOROLAC 15 MG/ML 1 ML VIAL IVP STA (13:38)
[2024-06-21] MEDS: SODIUM CHLORIDE 0.9% 1,000 ML IV STA (13:39)
[2024-06-21 15:07] VITALS: BP 142/80; PULSE 110; RESP 16
== END 2024-06-21 15:10 | disposition home or self-care (01) ==
LOC: EC 11:32
CPT/HCPCS: 70450; 96361; 96374; 96375; 99284

== ENCOUNTER → 2024-10-03 | Outpatient (CLI) | payer SELFPAY ==
[2024-10-04 03:49] LABS: Estradiol 20.2 pg/mL
== END | disposition home or self-care (01) ==
LOC: LABWHC1 16:34
PROVIDERS: ATTEND Family Medicine
DX: N92.6 Irregular menstruation, unspecified (principal); E28.2 Polycystic ovarian syndrome
CPT/HCPCS: 36415; 82533; 82670; 84144; 84403

== ENCOUNTER → 2025-01-02 | Outpatient (CLI) | payer SELFPAY ==
[2025-01-02 15:03] LABS: HCT 43.2 % (37.2-46.3); HGB 14.1 g/dL (12.0-15.0); MCHC 32.6 g/dL (32.0-37.0); MCV 88.7 FL (80.0-97.0); Mean Platelet Volume 9.5 FL (9.5-12.2); NRBC Per 100 WBC 0 X 10*3/uL (0.00-0.01); Platelet Count 347 X 10*3/uL (140-440); RBC 4.87 X 10*6/uL (4.10-5.20); RDW 12.7 % (11.5-14.5)
[2025-01-02 15:33] LABS: Homocysteine 8.05 UMOL/L (4.00-14.00)
[2025-01-02 15:39] LABS: ALT 38 U/L (8-44); AST 32 U/L (13-35); Albumin 4.5 g/dL (3.8-4.9); Alkaline Phosphatase 56 U/L (41-126); Blood Urea Nitrogen 16.1 mg/dL (9.0-27.0); C Reactive Protein, High Sens 0.988 mg/L (0.000-3.000); Calcium 9.7 mg/dL (8.7-10.3); Carbon Dioxide 23.2 mmol/L (21.6-31.8); Chloride 105 mmol/L (96-109); Chol/HDL Ratio 3.78 Ratio; Globulin 2.5 g/dL (1.6-3.3); Glucose 86 mg/dL (70-110); LDL Cholesterol,Calculated 115.8 mg/dL (0.0-131.0); Potassium 4.2 mmol/L (3.5-5.5); Sodium 140 mmol/L (135-145); Total Bilirubin 0.4 mg/dL (0.3-1.2)
[2025-01-02 15:47] LABS: Progesterone 0.3 ng/mL
[2025-01-02 17:48] LABS: C-Peptide 3.82 ng/mL (0.81-3.85)
[2025-01-02 17:50] LABS: Insulin Level 26.6 mIU/mL (3.0-25.0)
== END | disposition home or self-care (01) ==
LOC: LABWHC1 07:02
PROVIDERS: ATTEND Family Medicine
DX: E88.819 Insulin resistance, unspecified (principal); E28.2 Polycystic ovarian syndrome; F32.9 Major depressive disorder, single episode, unspecified; R53.83 Other fatigue; R10.9 Unspecified abdominal pain; W57.XXXA Bitten or stung by nonvenomous insect and other nonvenomous arthropods, initial encounter
CPT/HCPCS: 36415; 80053; 80061; 82306; 82533; 82670; 83036; 83090; 83525; 83735; 84144; 84443; 84681; 85027; 86141

== ENCOUNTER → 2025-02-17 | Outpatient (CLI) | payer OTHER ==
[2025-02-17 14:48] LABS: Magnesium 2.1 mg/dL (1.5-2.4); T4, Free (Free Thyroxine) 1.35 ng/dL (0.80-1.80); Testosterone 38.2 ng/dL (9.01-47.94)
[2025-02-17 15:27] LABS: Follicle Stimulating Hormone 2.2 mIU/mL
[2025-02-17 15:38] LABS: Thyroid Peroxidase Antibodies 15.9 U/mL (0.0-33.0)
[2025-02-17 16:34] LABS: Progesterone 7.7 ng/mL
[2025-02-17 18:15] LABS: Insulin Level 21.1 mIU/mL (3.0-25.0)
[2025-02-17 20:40] LABS: ACTH 21.6 pg/mL (0.00-45.99)
[2025-02-19 15:38] LABS: Anti-Mullerian Hormone 8.11 ng/mL (0.69 - 13.39)
[2025-02-21 20:19] LABS: Selenium 167 mcg/L (63-160)
[2025-02-23 04:41] LABS: Dihydrotestosterone <5 ng/dL (< OR = 20)
[2025-02-23 19:41] LABS: Zinc, RBC 11.8 mg/L (9.0-14.7)
== END | disposition home or self-care (01) ==
LOC: LABWHC1 09:31
PROVIDERS: ATTEND Nurse Practitioner Family
DX: G47.00 Insomnia, unspecified (principal); Z13.21 Encounter for screening for nutritional disorder; R73.01 Impaired fasting glucose; Z53.9 Procedure and treatment not carried out, unspecified reason
CPT/HCPCS: 36415; 82024; 82397; 82607; 82626; 82642; 82670; 83001; 83002; 83498; 83525; 83735; 84144; 84255; 84270; 84402; 84403; 84432; 84439; 84443; 84481; 84630; 86376; 86800